=== PATIENT | male | born 1985 | race Caucasian/White ===

== ENCOUNTER 2018-01-19 10:01 | Emergency (ER) | payer BC, OTHER ==
[~2018-01-19] VITALS: Ht 182.9 cm; Wt 86.5 kg
[~2018-01-19 10:01] MED LIST: ACET-1311 PO; GLUCTAB7 PO; RXC5 PO
[2018-01-19 10:05] VITALS: TEMP 36.6; Ht 182.9 cm; Wt 86.5 kg
[2018-01-19] MEDS ORDERED: MoRPHine SULFATE 10 MG/ML CARP/VIAL IV STA (10:19)
[2018-01-19] MEDS ORDERED: KETOROLAC TROMETHAMINE 30 MG/ML VIAL IV STA (10:19)
[2018-01-19 10:38] LABS: HEMATOCRIT 42.6 % (42-52); HEMOGLOBIN 15.6 g/dL (14.0-18.0); MEAN CELL VOLUME 84.9 fL (80-100); MEAN CORPUSCULAR HEMOGLOBIN 31.1 pg (25-34); MEAN CORPUSCULAR HGB CONC 36.6 g/dl (32-36); MEAN PLATELET VOLUME 9.2 fL (7.4-10.4); PLATELET COUNT 197 K/uL (130-400); RED CELL DISTRIBUTION WIDTH CV 12.5 % (11.5-14.5); RED CELL DISTRIBUTION WIDTH SD 38.1 fL (36.4-46.3); WHITE BLOOD COUNT 4.93 K/uL (4.8-10.8)
[2018-01-19 11:04] LABS: CALCIUM 9.2 mg/dl (8.5-10.1); CREATININE 0.75 mg/dl (0.60-1.40); POTASSIUM 4.2 mmol/L (3.5-5.1)
[2018-01-19] MEDS ORDERED: HYDR-4383 PO (11:20)
[2018-01-19] MEDS ORDERED: IBUP-1050 PO (11:20)
[2018-01-19] MEDS ORDERED: MULT-506 PO (11:20)
[2018-01-19] MEDS ORDERED: GLUC1CAP35 PO (11:20)
[2018-01-19] MEDS ORDERED: OMEG10007 PO (11:20)
--- NOTE | 2018-01-19 11:31 | DIAGNOSTIC IMAGING REPORT ---
TWO VIEW CHEST CLINICAL HISTORY: Thoracic back pain. FINDINGS: PA and lateral chest radiographs are compared to study dated 11/16/2014. The cardiomediastinal silhouette is unremarkable. The lungs and pleural spaces are clear. There is no pneumothorax. The bony thorax appears intact. IMPRESSION: No active disease in the chest. Electronically signed by: Allen Johnson M.D. 01/19/2018 11:30 AM Dictated Date/Time: 01/19/2018 11:30 AM
--- NOTE | 2018-01-19 11:34 | DIAGNOSTIC IMAGING REPORT ---
THORACIC SPINE 3 VIEWS CLINICAL HISTORY: Thoracic back pain. FINDINGS: AP, lateral, and swimmer's views of the thoracic spine are obtained. No prior studies are available for comparison at the time of dictation. The skeletal structures are well mineralized. There is no radiographic evidence of fracture or malalignment. Vertebral body height and alignment are maintained throughout the thoracic spine. The disc spaces are preserved. The transverse processes and pedicles are intact as seen on the frontal view. The imaged lung parenchyma appears clear. IMPRESSION: Unremarkable radiographic assessment of the thoracic spine. Electronically signed by: Allen Johnson M.D. 01/19/2018 11:33 AM Dictated Date/Time: 01/19/2018 11:32 AM
[2018-01-19 11:56] VITALS: BP 130/86; PULSE 75; O2SAT 95
--- NOTE | 2018-01-19 14:43 | EMERGENCY ROOM VISIT NOTE ---
History Report prepared by Mitesh: Otis Faust Under the Supervision of: Dr. Allen Arteaga M.D. First contact with patient: 10:11 Chief Complaint: SHORTNESS OF BREATH Stated Complaint: SOB,MIDDLE BACK PAIN History of Present Illness The patient is a 32 year old male who presents to the Emergency Room with complaints of gradually worsening upper to middle back pressure beginning yesterday. He currently rates his discomfort an 8/10 in severity. The patient states he was putting in a new microwave when his symptoms gradually began. He reports he has a history of a fused lower back, but this is not the location of his symptoms. The patient notes it is primarily in his upper back between his shoulders. He states movement takes his symptoms worsen and takes his breath away. The patient reports turning to the right hurts more than turning to his left. He notes breathing does not affect the severity of his symptoms. The patient states he currently receives pain management for a history of multiple surgeries. He denies a history of blood clots and recent long travel. Source of History: patient Onset: yesterday Position: back (upper) Symptom Intensity: 8/10 Quality: pressure Timing: worsening (gradually) Modifying Factors (Worsening): movement (takes breath away) Note: Denies: pain with breathing, hx of blood clots, recent long travel Review of Systems See HPI for pertinent positives & negatives. A total of 10 systems reviewed and were otherwise negative. Past Medical & Surgical Medical Problems: (1) Heart disease (2) HTN (hypertension) (3) Stomach problems (4) Ulcer Surgical Problems: (1) H/O spinal fusion Family History Cancer FH: heart disease Social History Smoking Status: Never Smoker Alcohol Use: none Drug Use: none Marital Status: single Housing Status: lives with family Occupation Status: employed Current/Historical Medications Scheduled Fish Oil ([place]-3), 1 CAP PO DAILY Runurlvacoh-Ozwclmyxxyf-Seg C- (Glucosamine Chondroitin), 1 CAP PO DAILY Multivitamin (Multivitamin), 1 TAB PO DAILY Scheduled PRN Hydrocodone/Acetaminophen ([place] 10/325 Tab), 1 TAB PO QID PRN for Pain Ibuprofen (Advil), 400 MG PO TID PRN for Pain Allergies Coded Allergies: Magnesium Sulfate (Verified Allergy, Unknown, HIVES, 01/19/18) NO KNOWN DRUG ALLERGIES (Verified Allergy, Unknown, , 12/06/14) Physical Exam Vital Signs Date Time Temp Pulse Resp B/P (MAP) Pulse Ox O2 Delivery O2 Flow Rate FiO2 01/19/18 11:56 75 16 130/86 95 Room Air 01/19/18 10:52 91 01/19/18 10:41 98 16 142/89 98 Room Air 01/19/18 10:30 90 18 176/117 98 Room Air 01/19/18 10:28 99 Room Air 01/19/18 10:05 36.6 102 20 168/96 100 Room Air Physical Exam GENERAL: Patient is in no acute distress. HEENT: No acute trauma, normocephalic atraumatic, mucous membranes moist, no nasal congestion, no scleral icterus. NECK: No stridor, no adenopathy, no meningismus, trachea is midline. LUNGS: Clear to auscultation bilaterally, no wheeze, no rhonchi, breath sounds equal. HEART: Without murmurs gallops or rubs, regular rate and rhythm. ABDOMEN: Soft, nontender, bowel sounds positive, no hernias, no peritonitis. BACK: Tender to the lower thoracic spine, mostly off to the right of spinous process. No bony step-off. No rash. Pain worsens with movement. EXTREMITIES: No cyanosis or edema, full range of motion of all the joints without pain or difficulty, no signs for acute trauma. NEUROLOGIC: Oriented x 3, no acute motor or sensory deficits, no focal weakness. SKIN: No rash, no jaundice, no diaphoresis. Medical Decision & Procedures ER Provider Diagnostic Interpretation: X-ray results as stated below per interpretation by me and the radiologist: THORACIC SPINE 3 VIEWS CLINICAL HISTORY: Thoracic back pain. FINDINGS: AP, lateral, and swimmer's views of the thoracic spine are obtained. No prior studies are available for comparison at the time of dictation. The skeletal structures are well mineralized. There is no radiographic evidence of fracture or malalignment. Vertebral body height and alignment are maintained throughout the thoracic spine. The disc spaces are preserved. The transverse processes and pedicles are intact as seen on the frontal view. The imaged lung parenchyma appears clear. IMPRESSION: Unremarkable radiographic assessment of the thoracic spine. Electronically signed by: Allen Johnson M.D. 01/19/2018 11:33 AM Dictated Date/Time: 01/19/2018 11:32 AM TWO VIEW CHEST CLINICAL HISTORY: Thoracic back pain. FINDINGS: PA and lateral chest radiographs are compared to study dated 11/16/2014. The cardiomediastinal silhouette is unremarkable. The lungs and pleural spaces are clear. There is no pneumothorax. The bony thorax appears intact. IMPRESSION: No active disease in the chest. Electronically signed by: Allen Johnson M.D. 01/19/2018 11:30 AM Dictated Date/Time: 01/19/2018 11:30 AM Laboratory Results 01/19/18 10:30 01/19/18 10:30 Test 01/19/18 10:30 01/19/18 10:34 Red Blood Count 5.02 M/uL (4.7-6.1) Mean Corpuscular Volume 84.9 fL (80-100) Mean Corpuscular Hemoglobin 31.1 pg (25-34) Mean Corpuscular Hemoglobin Concent 36.6 g/dl (32-36) RDW Standard Deviation 38.1 fL (36.4-46.3) RDW Coefficient of Variation 12.5 % (11.5-14.5) Mean Platelet Volume 9.2 fL (7.4-10.4) Anion Gap 6.0 mmol/L (3-11) Est Creatinine Clear Calc Drug Dose 158.1 ml/min Estimated GFR () 142.7 Estimated GFR (Non- 123.1 BUN/Creatinine Ratio 18.7 (10-20) Calcium Level 9.2 mg/dl (8.5-10.1) Bedside D-Dimer 249 ng/mlFEU (0-450) Bedside Troponin I < 0.030 ng/ml (0-0.045) Laboratory results reviewed by me. Medications Administered Medications (Trade) Dose Ordered Sig/Bruno Route Start Time Stop Time Status Last Admin Dose Admin Ketorolac Tromethamine (Toradol Inj) 30 mg NOW STAT IV 01/19/18 10:19 01/19/18 10:22 DC 01/19/18 11:00 30 MG Morphine Sulfate (MoRPHine SULFATE INJ) 6 mg NOW STAT IV 01/19/18 10:19 01/19/18 10:22 DC 01/19/18 11:00 6 MG ECG Per My Interpretation Indication: back/shoulder pain Rate (beats per minute): 87 Rhythm: normal sinus Findings: no ectopy, other (No ST elevation. No PVCs.) ED Course 1014: The patient was evaluated in room B05. A complete history and physical exam was performed. 1019: Ordered Morphine Sulfate 6mg IV, Toradol 30mg IV 1154: Reevaluated the patient. Discussed results and discharge instructions: he verbalized understanding and agreement. The patient is ready for discharge. Medical Decision The patient is a 32 year old male who presents to the ED with complaints of upper to middle back pain. Differential diagnoses considered include musculoskeletal pain, fracture, nerve impingement, pneumothorax, pneumonia, PE, [place]. There is no leukocytosis or concerning anemia. No significant electrolyte abnormality or kidney failure. Chest film does not show pneumonia, pneumothorax or mediastinal widening. T-spine series does not show fracture or bony malalignment. EKG shows a normal sinus rhythm, no acute ischemia. Cardiac enzyme testing 1 is not consistent with acute cardiac injury. D-dimer testing is negative. With a negative d-dimer and my low suspicion for PE, I will stop the workup for this diagnosis. Patient received IV Toradol and IV morphine, he feels improved. Patient's workup is benign, his pain is reproducible with movement and palpation and very likely musculoskeletal. Patient was reassured, he is being discharged home. Medication Reconcilliation Current Medication List: was personally reviewed by me Blood Pressure Screening Patient's blood pressure: Elevated blood pressure Blood pressure disposition: Elevated BP felt to be situational Impression Primary Impression: Thoracic back pain Scribe Attestation The scribe's documentation has been prepared under my direction and personally reviewed by me in its entirety. I confirm that the note above accurately reflects all work, treatment, procedures, and medical decision making performed by me. Departure Information Dispostion Home / Self-Care Referrals No Doctor, Assigned (PCP) Forms HOME CARE DOCUMENTATION FORM, IMPORTANT VISIT INFORMATION, Work Instructions Patient Instructions My [facility] Additional Instructions continue the pain meds as before motrin otc for additional pain control rest no lifting heat to the area for 30 minutes at a time every 1-2 hours return if worsening xrays and lab testing today was ok
== END 2018-01-19 12:06 | disposition home or self-care (01) ==
LOC: C.EDB 10:03
DX: M54.6 Pain in thoracic spine (principal); I11.9 Hypertensive heart disease without heart failure; Z79.899 Other long term (current) drug therapy; Z88.8 Allergy status to other drugs, medicaments and biological substances

== ENCOUNTER 2023-02-19 11:04 | Inpatient (IN) ==
--- NOTE | 2023-02-19 11:22 | Emergency Department Note ---
ED Provider Note History of Present Illness Chief Complaint: Swelling/Edema to Extremity Stated Complaint: LEG SWELLING, PAIN, CHILLS Time Seen by Provider: 02/19/23 11:20 This is a 37-year-old male who presents to the emergency department with right leg pain swelling and redness, and chills. He cut his leg on the corner of a piece of metal in his shop 4 days ago and he states that this wound did not heal properly. Since then, he has developed worsening pain, redness, and swelling. Last night his symptoms became much more severe. He had chills and took Tylenol. Has not taken any pain or fever reducing medications today. States that the pain is very severe and he cannot walk on the leg. He does endorse a history of intermittent leg swelling over the past 1 to 2 years worse on the right than the left that seems to come and go. He wears compression stockings for this. Has never had this evaluated in the past. He denies any other significant medical problems, no history of diabetes or poor wound healing. Does not take any other medications on a daily basis. No chest pain or shortness of breath. Unsure when his last tetanus shot was updated Allergies Allergy/AdvReac Type Severity Reaction Status Date / Time magnesium sulfate Allergy Unknown HIVES Verified 09/01/19 12:56 No Known Drug Allergies Allergy Unknown Verified 12/06/14 11:36 Past Med/Surg History Medical History Epididymoorchitis HTN (hypertension) Lumbar disc herniation with radiculopathy Surgical History History of back surgery Hx of lumbar discectomy Family History Father Myocardial infarction Other Heart disease Denies family history of Prostate cancer Breast cancer Colorectal cancer Social History Smoking Status: Former smoker Tobacco Type: E-cigarettes / Vaping Second Hand Exposure: No; Do You Dip or Chew Tobacco: No; Hx Alcohol Use: No Hx Substance Use: No Preferred Language: [place] [employer] Station Manager Required: No Beliefs That Will Affect Care: None marital status: Single Current Living Situation: Spouse current occupational status: employed Feels Safe at Home: Yes caffeine: Yes Dental Care, Regularly: Yes Physical Activity Frequency: 1-2 Times per Week Seatbelt Use: never Sunscreen Use: Yes Assistive Devices: None Physical Exam Vital Signs Vital Signs - 24 hr 02/19/23 11:14 02/19/23 12:10 02/19/23 12:10 Temperature 99.9 F H 98.1 F Temperature Source Temporal Artery Scan Oral Pulse Rate 134 H Pulse Rate [Apical] 118 H Pulse Rhythm [Apical] Regular Respiratory Rate 18 22 Respiratory Effort / Characteristics Non-Labored Non-Labored Spontaneous Respiratory Depth Normal Normal Respiratory Pattern Regular Blood Pressure 146/78 H Blood Pressure [Right Arm] 148/104 H Blood Pressure Mean 100 Blood Pressure Mean [Right Arm] 118 Blood Pressure Position [Right Arm] Lying Pulse Oximetry 100 98 98 Oxygen Delivery Method Room Air Room Air Room Air Sepsis Recent Fever Within 48 Hours Yes Sepsis New/Unexplained Change in Mental Status No Sepsis Action Taken by Nursing No Action Required 02/19/23 12:59 Temperature Temperature Source Pulse Rate 120 H Pulse Rate [Apical] Pulse Rhythm [Apical] Respiratory Rate Respiratory Effort / Characteristics Respiratory Depth Respiratory Pattern Blood Pressure Blood Pressure [Right Arm] Blood Pressure Mean Blood Pressure Mean [Right Arm] Blood Pressure Position [Right Arm] Pulse Oximetry Oxygen Delivery Method Sepsis Recent Fever Within 48 Hours Sepsis New/Unexplained Change in Mental Status Sepsis Action Taken by Nursing CONSTITUTIONAL: Well developed, well nourished, moderately ill-appearing. Rigors. EYES: conjunctivae normal, extraocular muscles intact. No scleral icterus ENMT: External ears normal. Nose with normal external appearance, no congestion. NECK: Full active range of motion. LYMPHATIC: Positive for right inguinal adenopathy RESPIRATORY: Breathing unlabored and symmetric. Lungs clear to auscultation bilaterally. No wheeze, rales, or rhonchi. CARDIOVASCULAR: Tachycardic rate and regular rhythm. No murmurs, rubs, or gallops. ABDOMEN: Normal bowel sounds. Soft, nontender, no peritonitis. No masses. MUSCULOSKELETAL: Right lower extremity: There is edema and an warm erythematous rash to the lower leg extending from the toes all the way up to the proximal lower leg. This is exquisitely tender to palpation. There is an ulcerative dime sized wound with minimal purulence present on the anterior can, no underlying fluctuance. There is lymphatic streaking on bilateral aspects of the leg extending onto the thigh. A relatively small fluid filled blister is present on the medial ankle/foot. Patient able to move all toes. No other open wounds. SKIN: Oil Trough, warm, dry. NEUROLOGIC: Awake, alert, oriented. Gaze is conjugate. Face symmetric, speech normal. Moves head and all four extremities spontaneously PSYCHIATRIC: Appropriate. Normal affect Course Administered Medications Ampicillin Sodium/Sulbactam Sodium 3,000 mg/ Sodium Chloride 108 mls @ 200 mls/hr IV Q6H [facility]; Protocol Stop: 02/26/23 18:44 Last Admin: 02/19/23 20:42 Dose: 200 mls/hr Documented By: AMIE Morphine Sulfate (Morphine Sulfate 2 Mg/Ml Carp) 2 mg IV Q4H PRN PRN Reason: pain, 2nd line Stop: 03/05/23 15:44 Last Admin: 02/19/23 19:21 Dose: 2 mg Documented By: AMIE Discontinued Medications Acetaminophen (Acetaminophen 500 Mg Tab) 1,000 mg PO NOW STA Stop: 02/19/23 11:35 Last Admin: 02/19/23 11:57 Dose: 1,000 mg Documented By: VY Diphtheria/Pertussis/Tetanus Vacc (Diphtheria/Tetanus/Pertussis Vaccine (Tdap, Age 7+Yrs) 0.5ml Syr/Vl) 0.5 ml IM .ONCE ONE Stop: 02/19/23 11:57 Last Admin: 02/19/23 12:17 Dose: 0.5 ml Documented By: VY Sodium Chloride (Nss 1000ml) 2,000 mls @ 999 mls/hr IV .Q2H1M ONE Stop: 02/19/23 13:34 Last Infusion: 02/19/23 17:26 Dose: 0 mls/hr Documented By: Admin: 02/19/23 12:08 Dose: 999 mls/hr Documented By: YV Vancomycin HCl 1,750 mg/ (Sodium Chloride) 535 mls @ 200 mls/hr IV NOW ONE Stop: 02/19/23 14:24 Last Admin: 02/19/23 12:32 Dose: 200 mls/hr Documented By: VY Ceftriaxone Sodium (Rocephin) 2,000 mg in 70 mls @ 140 mls/hr IV NOW STA Stop: 02/19/23 12:13 Last Infusion: 02/19/23 12:49 Dose: 0 mls/hr Documented By: Admin: 02/19/23 12:08 Dose: 140 mls/hr Documented By: VY Parenteral Electrolytes (Plasma-Lyte A Ph 7.4) 500 mls @ 999 mls/hr IV .Q31M ONE Stop: 02/19/23 18:33 Last Admin: 02/19/23 18:51 Dose: 999 mls/hr Documented By: MARY Ioversol (Optiray 320 500ml) 94 ml IV ONCE ONE Stop: 02/19/23 14:00 Last Admin: 02/19/23 13:59 Dose: 94 ml Documented By: SELAM Morphine Sulfate (Morphine Sulfate 4 Mg/Ml 1 Ml Carp\Vial) 4 mg IV NOW STA Stop: 02/19/23 11:35 Last Admin: 02/19/23 12:08 Dose: 4 mg Documented By: VY Medical Decision Making Differential Diagnosis Cellulitis, abscess, foreign body, lymphangitis, sepsis, DVT, lymphadenopathy, among other pathology Medical Records Attestation: I reviewed the patient's medical records. (Reviewed prior ED notes, reviewed prior Tdap) Laboratory Data 02/19/23 11:55 02/19/23 11:55 Lab Results 02/19/23 02/19/23 02/19/23 Range/Units 11:55 11:55 11:55 WBC 18.73 H (4.8-10.8) K/ul RBC 5.20 (4.70-6.10) M/uL Hgb 15.6 (14.0-18.0) g/dl Hct 44.2 (42.0-52.0) % MCV 85.0 (80.0-100.0) fL MCH 30.0 (25.0-34.0) pg MCHC 35.3 (32.0-36.0) g/dL RDW Std Deviation 40.3 (36.4-46.3) fL RDW Coeff of Eusebio 13.1 (11.5-14.5) % Plt Count 206 (130-400) K/uL MPV 9.0 L (9.4-12.4) fL Immature Gran % (Auto) 0.9 % Neut % (Auto) 93.3 % Lymph % (Auto) 2.9 % Real % (Auto) 2.1 % Eos % (Auto) 0.5 % Baso % (Auto) 0.3 % Neut # (Auto) 17.46 H (1.40-6.50) K/uL Lymph # (Auto) 0.54 L (1.2-3.4) K/uL Real # (Auto) 0.40 (0.11-0.59) K/uL Eos # (Auto) 0.10 (0-0.50) K/uL Baso # (Auto) 0.06 (0-0.2) K/uL Immature Gran # (Auto) 0.17 (0.01-0.20) K/uL Sodium 128 L (136-145) mmol/L Potassium 4.2 (3.5-5.1) mmol/L Chloride 95 L (98-107) mmol/L Carbon Dioxide 26 (21-32) mmol/L Anion Gap 7 (3-11) BUN 13 (6-23) mg/dl Creatinine 0.97 (0.6-1.4) mg/dl Est Cr Clr Drug Dosing 116.7 ml/min Est GFR ( Amer) 116.7 ml/min Est GFR (Non-Af Amer) 100.7 ml/min BUN/Creatinine Ratio 13.4 (10-20) Glucose 106 H (70-99(Fasting)) mg/dl Lactate 1.8 (0.4-2.0) mmol/L Calcium 9.1 (8.6-10.3) mg/dl Total Bilirubin 1.1 H (0.2-1.0) mg/dl AST 31 (13-39) U/L ALT 30 (7-52) U/L Alkaline Phosphatase 88 (34-104) U/L Total Protein 7.8 (6.0-8.3) gm/dl Albumin 4.1 (3.4-5.0) gm/dl Globulin 3.7 (2.5-4.0) gm/dl Albumin/Globulin Ratio 1.1 (0.9-2) SARS-CoV-2, RNA, NAAT (NEGATIVE) 02/19/23 Range/Units 13:48 WBC (4.8-10.8) K/ul RBC (4.70-6.10) M/uL Hgb (14.0-18.0) g/dl Hct (42.0-52.0) % MCV (80.0-100.0) fL MCH (25.0-34.0) pg MCHC (32.0-36.0) g/dL RDW Std Deviation (36.4-46.3) fL RDW Coeff of Eusebio (11.5-14.5) % Plt Count (130-400) K/uL MPV (9.4-12.4) fL Immature Gran % (Auto) % Neut % (Auto) % Lymph % (Auto) % Real % (Auto) % Eos % (Auto) % Baso % (Auto) % Neut # (Auto) (1.40-6.50) K/uL Lymph # (Auto) (1.2-3.4) K/uL Real # (Auto) (0.11-0.59) K/uL Eos # (Auto) (0-0.50) K/uL Baso # (Auto) (0-0.2) K/uL Immature Gran # (Auto) (0.01-0.20) K/uL Sodium (136-145) mmol/L Potassium (3.5-5.1) mmol/L Chloride (98-107) mmol/L Carbon Dioxide (21-32) mmol/L Anion Gap (3-11) BUN (6-23) mg/dl Creatinine (0.6-1.4) mg/dl Est Cr Clr Drug Dosing ml/min Est GFR ( Amer) ml/min Est GFR (Non-Af Amer) ml/min BUN/Creatinine Ratio (10-20) Glucose (70-99(Fasting)) mg/dl Lactate (0.4-2.0) mmol/L Calcium (8.6-10.3) mg/dl Total Bilirubin (0.2-1.0) mg/dl AST (13-39) U/L ALT (7-52) U/L Alkaline Phosphatase (34-104) U/L Total Protein (6.0-8.3) gm/dl Albumin (3.4-5.0) gm/dl Globulin (2.5-4.0) gm/dl Albumin/Globulin Ratio (0.9-2) SARS-CoV-2, RNA, NAAT NEGATIVE (NEGATIVE) Imaging Data Radiologist's Impression: Tibia/Fibula X-Ray 02/19/23 12:02 XR tibia fibula RT 2V CLINICAL HISTORY: open wound mid ant can, cellulitis lower leg COMPARISON: Right ankle radiographs December 27, 2009. FINDINGS: No fracture within the right tibia or fibula is identified. There is no evidence for acute osteomyelitis. Right lower leg and ankle soft tissue swelling is present. No radiographic evidence for soft tissue gas. IMPRESSION: 1. No fracture or evidence for acute osteomyelitis within the right tibia or fibula. 2. Right lower leg and ankle soft tissue swelling. ACT 112: Negative or not required by law. Electronically signed by: Kiko Sanders M.D. 02/19/2023 1:[address] 02/19/23 13:14 CT SCAN OF THE RIGHT FEMUR WITH IV CONTRAST CLINICAL HISTORY: Cellulitis. Right leg swelling and erythema. COMPARISON STUDY: No priors. TECHNIQUE: Following the IV administration of 94 cc of Optiray 320, CT scan of the right femur is performed from the bony pelvis to the knee. Images are reviewed in the axial, sagittal, and coronal planes. IV contrast was administered without complication. A dose lowering technique was utilized adhering to the principles of ALARA. FINDINGS: The skeletal structures are well mineralized. There is no evidence of right femoral fracture. There is no avascular necrosis of the right femoral head. The visualized right hemipelvis appears intact. The hip and knee joints are grossly maintained. No lytic or blastic lesion is seen. The regional musculature is normal in appearance. Minimal subcutaneous soft tissue edema is seen within the anterior/medial aspect of the thigh. There is also deep soft tissue edema posterior to the knee. No organized fluid collection is identified. The femoral and popliteal vessels are patent as imaged. Prominent right inguinal and external iliac chain lymph nodes are likely reactive. The largest node is seen on image #116 and measures 2.2 x 1.7 cm. The bladder, prostate, and seminal vesicles are normal as visualized. No soft tissue gas is seen. A left popliteal cyst is partially visualized. IMPRESSION: 1. Normal CT appearance of the right femur. 2. Mild soft tissue edema is seen in the anterior/medial right thigh, there is also soft tissue edema posterior to the knee. Correlate clinically for evidence of cellulitis. 3. No organized fluid collection is seen to indicate abscess. 4. A left popliteal cyst is partially visualized. ACT 112: Negative or not required by law. Dictated: 02/19/2023 2:23 PM Transcribed: 02/19/2023 2:36 PM Nicole [id number] JOSEPH_Maicol [id number] Electronically signed by: Allen Johnson M.D. 02/19/2023 2:[address] 02/19/23 13:[address] WITH CONTRAST CLINICAL HISTORY: Suspected cellulitis w lymphangitis/inguinal adenopathy. COMPARISON STUDY: Right knee radiographs December 28, 2019 and right tibia and fibula radiographs February 19, 2023. TECHNIQUE: Axial images of the right foot were obtained following intravenous injection of 94 cc of Optiray 320 IV. Sagittal and coronal reconstructions were viewed. Automated exposure control was utilized for the study. A dose lowering technique was utilized adhering to the principles of ALARA. FINDINGS: Please note that the CTs of the right femur and right tibia and fibula will be reported separately. Tarsometatarsal joints are intact. Please note that the distalmost aspects of several toes were not included on this exam. However, no fractures are identified within visualized portions of the right foot. There is no CT evidence for acute osteomyelitis. No fluid collection is identified. No soft tissue gas is noted. Note is made of moderate subcutaneous edema of the dorsal right mid and forefoot. There is also diffuse right lower leg soft tissue swelling. Fluid along the fascia is noted. Findings will be further described on the CT of the right tibia and fibula. There are no fractures within the right tibia or fibula. There is no evidence for acute osteomyelitis. IMPRESSION: 1. No acute fracture or evidence for acute osteomyelitis within the right foot. 2. Diffuse right lower extremity soft tissue swelling, greatest within the lower leg and ankle suggestive of cellulitis. No fluid collection to suggest abscess. In addition, associated fluid along the fascia. No soft tissue gas. ACT 112: Negative or not required by law. Electronically signed by: Kiko Sanders M.D. 02/19/2023 2:[address] 02/19/23 13:14 CT tib/fib RT w con CT DOSE: 893.14 mGy.cm CLINICAL HISTORY: suspected cellulitis w lymphangitis/inguinal blair. . Right leg swelling. TECHNIQUE: Multiaxial CT was the right tibia/fibular were performed following the intravenous administration of contrast and reformatted in the sagittal and coronal planes. A dose lowering technique was utilized adhering to the principles of ALARA. COMPARISON STUDY: None. FINDINGS: No fracture or dislocation within the right tibia or fibula. No destructive changes to suggest an osteomyelitis. There is extensive subcutaneous edema and skin thickening within the right lower leg most pronounced within the right ankle. There is a 3 cm skin blister along the medial aspect of the ankle/hindfoot. No loculated fluid collections to suggest an abscess. The major vascular structures enhance normally. There is also focal soft tissue edema within the fascial planes of the posterior leg surrounding the vessels.. This is nonspecific but could be due to a ruptured popliteal cyst or infectious process. No significant knee effusion. No radio opaque foreign bodies or soft tissue gas identified. IMPRESSION: 1. Extensive subcutaneous edema and skin thickening within the right lower leg most pronounced distally. This is nonspecific but favors a cellulitis. 2. No loculated fluid collections to suggest an abscess. 3. There is associated fluid along the posterior fascial planes within the proximal right lower leg. This could also represent underlying infection or possibly a ruptured popliteal cyst. 4. No evidence for an osteomyelitis. ACT 112: Negative or not required by law. Electronically signed by: John Georges M.D. 02/19/2023 2:40 PM Venous Doppler Study 02/19/23 13:32 ULTRASOUND BILATERAL LOWER EXTREMITY VENOUS CLINICAL HISTORY: Lower extremity edema. COMPARISON STUDY: No priors. TECHNIQUE: Real-time, grayscale, and color Doppler sonography of the deep veins of the right and left lower extremity was performed from the inguinal crease to the calf. Compression and augmentation were utilized. FINDINGS: There is no sonographic evidence of deep venous thrombosis identified in the right or left lower extremity. The common femoral, superficial femoral, and popliteal veins are patent and normally compressible bilaterally. The greater saphenous vein and the profunda femoris vein at the junction with the common femoral vein are clear in both legs. The visualized calf veins are patent bilaterally. Prominent right groin nodes are likely reactive. A left popliteal c yst measures 4.0 x 1.7 x 2.8 cm. Soft tissue edema is present in the right lower extremity. IMPRESSION: 1. There is no sonographic evidence of deep venous thrombosis identified in the right or left lower extremity. 2. Left popliteal cyst. ACT 112: Negative or not required by law. Electronically signed by: Allen Johnson M.D. 02/19/2023 5:47 PM MDM Narrative This is a 37-year-old male who presents with right lower leg swelling, pain, rash and an open wound secondary to cutting his leg on the corner of a piece of metal in his shop 4 days ago. He endorses a history of baseline intermittent leg edema in bilateral legs, worse on the right than the left for the past 1 to 2 years for which he wears compression stockings. On exam he is moderately ill-appearing with rigors. His heart rate is 134. Temperature is 99.9. He is slightly hypertensive at 146/78. He is nontoxic. The rash on the leg is highly suspicious for cellulitis given the open wound which has a slight amount of purulence (culture obtained) but no fluctuance, and he has associated lymphatic streaking and right inguinal adenopathy. An IV was established and labs were obtained. 2 L IV fluids were administered. He was given Tylenol and morphine. An order was placed for continuous cardiac monitoring and at time of visualization this demonstrated sinus tachycardia between 110 and 120. I suspected the patient would need to be admitted so I discussed antibiotic options with the ED clinical pharmacist who recommended vancomycin and ceftriaxone. Tdap updated. X-ray of the tibia/fibula was obtained to rule out any foreign bodies and this shows soft tissue edema, no evidence of osteomyelitis. Labs: Leukocytosis at 18.76 consistent with infectious process. No anemia. Hyponatremia at 128. I suspect this to be secondary to lack of intake over the last few days. Also suspect a component of dehydration. Renal function is normal. Lactate is normal. Patient's temperature improved. His tachycardia remained present. Patient not a candidate for discharge home. I discussed the case with Dr. Kelley (hospitalist, [facility]) who evaluated the patient at bedside and requested a CT of the lower extremity with contrast prior to admission. This was obtained showing evidence of extensive cellulitis with no fluid collection to suggest an abscess. There was also fluid along the fascial planes. Dr. Kelley discussed with orthopedics, no indication for surgery at this time. Patient will be admitted under the hospitalist service for close monitoring and further management Impression Cellulitis of right lower extremity, Leg wound, right, Lymphangitis of lower ex tremity Discharge Plan Visit Data Chief Complaint: Swelling/Edema to Extremity Stated Complaint: LEG SWELLING, PAIN, CHILLS ED Provider: Deborah Jacobson ED Midlevel Provider: Florin Cohen Discharge Problem: Cellulitis of right lower extremity, Leg wound, right, Lymphangitis of lower extremity Patient Disposition: Admitted As Inpatient Condition: Fair Discharge Instructions Interventions: ED Discharge Assessment Last Done: 02/19/23 17:21 Leg wound, right Qualifiers: Encounter type: initial encounter Qualified Code(s): S81.801A - Unspecified open wound, right lower leg, initial encounter
[2023-02-19] MEDS ORDERED: MoRPHine SULFATE 4 MG/ML 1 ML CARP\\VIAL IV STA (11:34)
[2023-02-19] MEDS ORDERED: ACETAMINOPHEN 500 MG TAB PO STA (11:34)
[2023-02-19] MEDS ORDERED: SODIUM CHLORIDE 0.9% 1000ML 2,000 ML IV ONE (11:34)
[2023-02-19] MEDS ORDERED: VANCOMYCIN CONSULT ACTIVE PRN ×2 (11:44→18:03)
[2023-02-19] MEDS ORDERED: cefTRIAXone SODIUM 2,000 MG/70 ML BAG IV STA (11:44)
[2023-02-19] MEDS ORDERED: VANCOMYCIN HCL 1,750 MG in SODIUM CHLORIDE 0.9% 500 ML IV ONE (11:44)
[2023-02-19] MEDS ORDERED: DIPHTHERIA/TETANUS/PERTUSSIS Vaccine (Tdap, Age 7+yrs) 0.5mL SYR/VL IM ONE (11:56)
[2023-02-19 12:20] LABS: Hematocrit (blood only) 44.2 % (42.0-52.0); Hemoglobin 15.6 g/dl (14.0-18.0); Mean Corpuscular Hgb Conc 35.3 g/dL (32.0-36.0); Platelet Count 206 K/uL (130-400); RDW Coefficient of Variation 13.1 % (11.5-14.5); RDW Standard Deviation 40.3 fL (36.4-46.3); White Blood Count 18.73 K/ul (4.8-10.8)
[2023-02-19 12:36] LABS: Albumin Globulin Ratio 1.1 (0.9-2); Albumin Level 4.1 gm/dl (3.4-5.0); BUN Creatinine Ratio 13.4 (10-20); Bilirubin,Total 1.1 mg/dl (0.2-1.0); Calcium 9.1 mg/dl (8.6-10.3); Creatinine Clr Calc Pharmacy 116.7 ml/min; Est GFR (African American) 116.7 ml/min; Est GFR (Non-African American) 100.7 ml/min; Globulin 3.7 gm/dl (2.5-4.0); Potassium 4.2 mmol/L (3.5-5.1); Total Protein 7.8 gm/dl (6.0-8.3)
[2023-02-19 12:42] LABS: Basophils # (auto) 0.06 K/uL (0-0.2); Basophils % (auto) 0.3 %; Eosinophils % (auto) 0.5 %; Immature Granulocytes # (auto) 0.17 K/uL (0.01-0.20); Immature Granulocytes % (auto) 0.9 %; Lymphocytes # (auto) 0.54 K/uL (1.2-3.4); Lymphocytes % (auto) 2.9 %; Monocytes % (auto) 2.1 %; Neutrophils # (auto) 17.46 K/uL (1.40-6.50); Neutrophils % (auto) 93.3 %
--- NOTE | 2023-02-19 13:30 | XRay Report ---
XR tibia fibula RT 2V CLINICAL HISTORY: open wound mid ant can, cellulitis lower leg COMPARISON: Right ankle radiographs December 27, 2009. FINDINGS: No fracture within the right tibia or fibula is identified. There is no evidence for acute osteomyelitis. Right lower leg and ankle soft tissue swelling is present. No radiographic evidence f or soft tissue gas. IMPRESSION: 1. No fracture or evidence for acute osteomyelitis within the right tibia or fibula. 2. Right lower leg and ankle soft tissue swelling. ACT 112: Negative or not required by law. Electronically signed by: Kiko Sanders M.D. 02/19/2023 1:29 PM
--- NOTE | 2023-02-19 13:42 | History & Physical Report ---
Date of Service February 19, 2023 Assessment & Plan (1) Cellulitis of right lower extremity: Plan: Hemant is a 37-year-old male who sustained a shop injury with a cut on sheet- metal to his right lower extremity which had proceeding swelling/edema and which has rapidly worsened with swelling, overlying erythema, lymphangitis, and pain limiting weightbearing. He is febrile with a leukocytosis and has had shaking chills/rigors over the last 24 hours. Cellulitis with lymphangitis Due to rapid progression, severity of illness, and severe pain contrasted CT to evaluate for NSTI ordered prior to admission. - CT w/ con RLE: No fracture or dislocation within the right tibia or fibula. No destructive changes to suggest an osteomyelitis. There is extensive subcutaneous edema and skin thickening within the right lower leg most pronounced within the right ankle. There is a 3 cm skin blister along the medial aspect of the ankle/hindfoot. No loculated fluid collections to suggest an abscess. The major vascular structures enhance normally. There is also focal soft tissue edema within the fascial planes of the posterior leg surrounding the vessels.. This is nonspecific but could be due to a ruptured popliteal cyst or infectious process. No significant knee effusion. No radio opaque foreign bodies or soft tissue gas identified. No loculated fluid, abscess, or gas is noted. Fascial edema/fluid is noted as above. Antibiotics expanded to Vanco and Unasyn for treatment of severe cellulitis with suspected lymphangitis. Did discuss with Ortho/Dr. Alvarez, agreed with medical management at this time and clinical reevaluation. If clinically worsening, obtain MRI and consult. Pt endorses lower extremity swelling preceding his current cellulitis which patient had not had any evaluation of, Dopplers for DVT evaluation pending. Patient also reports a history of chest tightness and lower extremity swelling,? History of blood/cardiac disorder in parents. Pt is tachycardic on admit, echo pending although suspect reactive tachycardia, improving following fluids/antibiotics/Tylenol Tdap given while in ER Blood cultures pending, surface culture pending CRP pending Tachycardia - EKG pending Improving with hydration and pain control, suspect reactive Echo pending as noted Denies chest pain on reevaluation DVT prophylaxis: Lovenox Diet: Regular Disposition: Medical telemetry due to tachycardia likely reactive, downgrade if patient improving/remained stable CODE STATUS: Full code (2) HTN (hypertension): History of Present Illness Primary Care Provider: Cherri Torres MD Hemant is a 37-year-old male with a past medical history of lumbar disc herniation with radiculopathy s/p lumbar spinal fusion and hypertension who presents to the ER for worsening right leg pain, swelling, and redness after sustaining a cut from sheet-metal working in his shop 4 days prior to ER presentation. While in the ER patient is ill-appearing, heart rate 134, temperature of 99.9, and with rigors while in the ER patient has been started on Rocephin/vancomycin empiric therapy and given Tdap. Patient seen at the bedside, patient has had rigors/fever/chills worsening over the last 24 hours, and severe pain in the right lower extremity with tense swelling and the inability to bear weight due to pain. Seen at the bedside. Hemant reports that 4 days ago he had a cut to his right lower extremity while working in the shop. Cut was on sheet-metal. He reports that prior to this he has had intermittent swelling in his right greater than left lower extremity intermittently which gets worse throughout the day and has had some intermittent feelings of shortness of breath. He has never had issues with a blood clot or heart attack, reports he thinks there was an issue with blood in his father side and possibly clots and possibly involving the heart? Cardiomyopathy but he is not sure. He reports his swelling of his legs has somewhat improved with elevation, but not completely and is not always associated with just being on his feet for long periods of time. Swelling was present at the area that got caught and which is subsequently worsened and becoming more tense and swollen over the last 4 days. He has a feeling of his heart racing and being tense, denies chest pain. He feels a little short of breath and notes that he is very worried about the infection. He denies having difficulty breathing or pain with inspiration. He has not had any severe infections like this in the past. He does have a history of lumbar surgery with metal hardware for radiculopathy. He denies abdominal pain, nausea, vomiting, diarrhea. He reports his pain is improved since getting antibiotics and morphine in the ER. He denies history of tobacco/alcohol use. He denies allergies to antibiotics and denies any allergy to contrast which she has had before without difficulty noting it just makes him feel warm/flushed. full code Allergies Allergy/AdvReac Type Severity Reaction Status Date / Time magnesium sulfate Allergy Unknown HIVES Verified 09/01/19 12:56 No Known Drug Allergies Allergy Unknown Verified 12/06/14 11:36 Home Medications Medication Instructions Recorded Confirmed Type kgweocykavu-vfgqkwfbc-wmu C-Mn 1 cap PO DAILY 08/31/19 09/01/19 History capsule (Glucosamine-Chondroitin Complex capsule) omega-3 fatty acids 1,000 mg 1,000 mg PO DAILY 08/31/19 08/31/19 History capsule ibuprofen 200 mg tablet 200 mg PO QID PRN 09/01/19 09/01/19 History cyclobenzaprine 5 mg tablet 5 mg PO TID PRN muscle spasm #10 10/09/19 Rx tabs oxycodone 10 mg tablet 10 mg PO Q4H PRN pain #15 tabs 10/09/19 Rx Past Med/Surg History Medical History Epididymoorchitis HTN (hypertension) Lumbar disc herniation with radiculopathy Surgical History History of back surgery Hx of lumbar discectomy Family History Father Myocardial infarction Other Heart disease Denies family history of Prostate cancer Breast cancer Colorectal cancer Social History Smoking Status: Never smoker Tobacco Type: E-cigarettes / Vaping Hx Alcohol Use: No Hx Substance Use: No Preferred Language: Russian marital status: Single Current Living Situation: Significant Other current occupational status: employed Feels Safe at Home: Yes caffeine: Yes Dental Care, Regularly: Yes Physical Activity Frequency: 1-2 Times per Week Seatbelt Use: never Sunscreen Use: Yes Review of Systems Review of Systems: All systems reviewed & are unremarkable except as noted in HPI & below Physical Exam Physical Exam: General: A&Ox3. NAD. Cooperative. HEENT: Atraumatic, normocephalic. Vision/hearing intact Pulm: CTAB A&P. -wheezes, -rales, -rhonchi. Symmetrical chest rise. No increased work of breathing. No respiratory distress. Cardiac: Tachycardic, regular, -mrg. Radial pulses intact and symmetrical. Abdominal: Nontender, nondistended, soft. BS present. Extremities: See photos below. Sensation of soft touch is intact in feet bilaterally qualitatively diminished on the right, ankle dorsifle xion/plantarflexion is 5/5 bilaterally but significantly limited on the right due to pain. Crepitus is not present on exam. 3 cm fluid-filled bullae present at right medial foot Results & Data Results & Data Vital Signs (Past 12 Hours) Vital Signs Temp Pulse Pulse Resp BP BP Pulse Ox 02/19/23 12:59 120 H 02/19/23 12:10 98 02/19/23 12:10 36.7 C 118 H 22 148/104 H 98 02/19/23 11:14 37.7 C H 134 H 18 146/78 H 100 O2 Del Method 02/19/23 12:59 02/19/23 12:10 Room Air 02/19/23 12:10 Room Air 02/19/23 11:14 Room Air PG Care Time/CCT Total # of Minutes Spent Total Time Spent with Patient: Total time spent is greater than 50% in coordination of care (as documented) at patient's floor/unit and/or counseling patient: Coding Level of Care Code 14114 INT INP/OBS CARE 3MIN Diagnoses Cellulitis of right lower extremity L03.115 HTN (hypertension) I10
[2023-02-19] MEDS ORDERED: OPTIRAY 320 500ml IV ONE (13:59)
--- NOTE | 2023-02-19 14:27 | CT Scan Report ---
RIGHT FOOT CT WITH CONTRAST CLINICAL HISTORY: Suspected cellulitis w lymphangitis/inguinal adenopathy. COMPARISON STUDY: Right knee radiographs December 28, 2019 and right tibia and fibula radiographs January. TECHNIQUE: Axial images of the right foot were obtained following intravenous injection of 94 cc of O ptiray 320 IV. Sagittal and coronal reconstructions were viewed. Automated exposure control was utili [employer] for the study. A dose lowering technique was utilized adhering to the principles of ALARA. FINDINGS: Please note that the CTs of the right femur and right tibia and fibula will be reported sep arately. Tarsometatarsal joints are intact. Please note that the distalmost aspects of several toes w ere not included on this exam. However, no fractures are identified within visualized portions of the right foot. There is no CT evidence for acute osteomyelitis. No fluid collection is identified. No s oft tissue gas is noted. Note is made of moderate subcutaneous edema of the dorsal right mid and fore foot. There is also diffuse right lower leg soft tissue swelling. Fluid along the fascia is noted. Fi ndings will be further described on the CT of the right tibia and fibula. There are no fractures with in the right tibia or fibula. There is no evidence for acute osteomyelitis. IMPRESSION: 1. No acute fracture or evidence for acute osteomyelitis within the right foot. 2. Diffuse right lower extremity soft tissue swelling, greatest within the lower leg and ankle sugges tive of cellulitis. No fluid collection to suggest abscess. In addition, associated fluid along the f ascia. No soft tissue gas. ACT 112: Negative or not required by law. Electronically signed by: Kiko Sanders M.D. 02/19/2023 2:26 PM
--- NOTE | 2023-02-19 14:42 | CT Scan Report ---
CT tib/fib RT w con CT DOSE: 893.14 mGy.cm CLINICAL HISTORY: suspected cellulitis w lymphangitis/inguinal blair. . Right leg swelling. TECHNIQUE: Multiaxial CT was the right tibia/fibular were performed following the intravenous adminis tration of contrast and reformatted in the sagittal and coronal planes. A dose lowering technique wa s utilized adhering to the principles of ALARA. COMPARISON STUDY: None. FINDINGS: No fracture or dislocation within the right tibia or fibula. No destructive changes to sugg est an osteomyelitis. There is extensive subcutaneous edema and skin thickening within the right lowe r leg most pronounced within the right ankle. There is a 3 cm skin blister along the medial aspect of the ankle/hindfoot. No loculated fluid collections to suggest an abscess. The major vascular structu res enhance normally. There is also focal soft tissue edema within the fascial planes of the posterio r leg surrounding the vessels.. This is nonspecific but could be due to a ruptured popliteal cyst or infectious process. No significant knee effusion. No radio opaque foreign bodies or soft tissue gas i dentified. IMPRESSION: 1. Extensive subcutaneous edema and skin thickening within the right lower leg most pronounced distal ly. This is nonspecific but favors a cellulitis. 2. No loculated fluid collections to suggest an abscess. 3. There is associated fluid along the posterior fascial planes within the proximal right lower leg. This could also represent underlying infection or possibly a ruptured popliteal cyst. 4. No evidence for an osteomyelitis. ACT 112: Negative or not required by law. Electronically signed by: John Georges M.D. 02/19/2023 2:40 PM
--- NOTE | 2023-02-19 14:54 | CT Scan Report ---
CT SCAN OF THE RIGHT FEMUR WITH IV CONTRAST CLINICAL HISTORY: Cellulitis. Right leg swelling and erythema. COMPARISON STUDY: No priors. TECHNIQUE: Following the IV administration of 94 cc of Optiray 320, CT scan of the right femur is per formed from the bony pelvis to the knee. Images are reviewed in the axial, sagittal, and coronal plan es. IV contrast was administered without complication. A dose lowering technique was utilized adherin g to the principles of ALARA. FINDINGS: The skeletal structures are well mineralized. There is no evidence of right femoral fractur e. There is no avascular necrosis of the right femoral head. The visualized right hemipelvis appears intact. The hip and knee joints are grossly maintained. No lytic or blastic lesion is seen. The regio nal musculature is normal in appearance. Minimal subcutaneous soft tissue edema is seen within the an terior/medial aspect of the thigh. There is also deep soft tissue edema posterior to the knee. No org anized fluid collection is identified. The femoral and popliteal vessels are patent as imaged. Promin ent right inguinal and external iliac chain lymph nodes are likely reactive. The largest node is seen on image #116 and measures 2.2 x 1.7 cm. The bladder, prostate, and seminal vesicles are normal as v isualized. No soft tissue gas is seen. A left popliteal cyst is partially visualized. IMPRESSION: 1. Normal CT appearance of the right femur. 2. Mild soft tissue edema is seen in the anterior/medial right thigh, there is also soft tissue edema posterior to the knee. Correlate clinically for evidence of cellulitis. 3. No organized fluid collection is seen to indicate abscess. 4. A left popliteal cyst is partially visualized. ACT 112: Negative or not required by law. Dictated: 02/19/2023 2:23 PM Transcribed: 02/19/2023 2:36 PM Nicole [id number] JOSEPH_Maicol [id number] Electronically signed by: Allen Johnson M.D. 02/19/2023 2:52 PM
--- NOTE | 2023-02-19 16:18 | Electrocardiogram Report ---
Test Reason : Blood Pressure : / mmHG Vent. Rate : 106 BPM Atrial Rate : 106 BPM P-R Int : 128 ms QRS Dur : 088 ms QT Int : 346 ms P-R-T Axes : 077 060 066 degrees QTc Int : 459 ms Sinus tachycardia Normal ECG When compared with ECG of 19-JAN-2018 10:37, No significant change was found Confirmed by Rahul River ([id number]) on 02/19/2023 4:18:50 PM Referred By: REFERRED SELF Confirmed By:Rahul River
--- NOTE | 2023-02-19 17:49 | Ultrasound Report ---
ULTRASOUND BILATERAL LOWER EXTREMITY VENOUS CLINICAL HISTORY: Lower extremity edema. COMPARISON STUDY: No priors. TECHNIQUE: Real-time, grayscale, and color Doppler sonography of the deep veins of the right and left lower extremity was performed from the inguinal crease to the calf. Compression and augmentation wer e utilized. FINDINGS: There is no sonographic evidence of deep venous thrombosis identified in the right or left lower extremity. The common femoral, superficial femoral, and popliteal veins are patent and normally compressible bilaterally. The greater saphenous vein and the profunda femoris vein at the junction w ith the common femoral vein are clear in both legs. The visualized calf veins are patent bilaterally. Prominent right groin nodes are likely reactive. A left popliteal cyst measures 4.0 x 1.7 x 2.8 cm. Soft tissue edema is present in the right lower extremity. IMPRESSION: 1. There is no sonographic evidence of deep venous thrombosis identified in the right or left lower e xtremity. 2. Left popliteal cyst. ACT 112: Negative or not required by law. Electronically signed by: Allen Johnson M.D. 02/19/2023 5:47 PM
[2023-02-19] MEDS ORDERED: PLASMA-LYTE A 500 ML IV ONE (18:03)
--- NOTE | 2023-02-19 18:03 | XCELERA ---
[id number]
[2023-02-19] MEDS: MoRPHine SULFATE 2 MG/ML CARP IV PRN (19:21)
[2023-02-19] MEDS: AMPICILLIN/SULBACTAM SOD 3,000 MG in 0.9 % SODIUM CHLORIDE 100 ML IV SCH (20:42)
[2023-02-19] MEDS: PLASMA-LYTE A 1,000 ML IV SCH (21:33)
[2023-02-19] MEDS: VANCOMYCIN HCL 1,500 MG in SODIUM CHLORIDE 0.9% 500 ML IV SCH (21:33)
[2023-02-20] MEDS: AMPICILLIN/SULBACTAM SOD 3,000 MG in 0.9 % SODIUM CHLORIDE 100 ML IV SCH ×2 (00:52→05:57)
[2023-02-20] MEDS: MoRPHine SULFATE 2 MG/ML CARP IV PRN ×3 (01:24→14:42)
[2023-02-20] MEDS: ACETAMINOPHEN 325 MG TAB PO PRN ×2 (03:05→09:57)
[2023-02-20] MEDS: PLASMA-LYTE A 1,000 ML IV SCH (05:56)
--- NOTE | 2023-02-20 08:20 | Hospitalist Progress Note ---
Date of Service February 20, 2023 Assessment & Plan (1) Cellulitis of right lower extremity: Plan: Hemant is a 37-year-old male who sustained a shop injury with a cut on sheet- metal to his right lower extremity which had proceeding swelling/edema and which has rapidly worsened with swelling, overlying erythema, lymphangitis, and pain limiting weightbearing. He is febrile with a leukocytosis and has had shaking chills/rigors over the last 24 hours. Cellulitis with lymphangitis Due to rapid progression, severity of illness, and severe pain contrasted CT to evaluate for NSTI ordered prior to admission. CT w/ con RLE: * No fracture or dislocation within the right tibia or fibula. No destructive changes to suggest an osteomyelitis. There is extensive subcutaneous edema and skin thickening within the right lower leg most pronounced within the right ankle. There is a 3 cm skin blister along the medial aspect of the ankle/hindfoot. No loculated fluid collections to suggest an abscess. The major vascular structures enhance normally. There is also focal soft tissue edema within the fascial planes of the posterior leg surrounding the vessels.. This is nonspecific but could be due to a ruptured popliteal cyst or infectious process. No significant knee effusion. No radio opaque foreign bodies or soft tissue gas identified. Initially Abx Vanco/Unasyn for severe cellulitis w/ lymphagitis Ortho discussed on admit, agreed to admission/med maganament and MRI/consult if worsened. Doppler NEGATIVE for DVT (noting bakers cyst on the left) Tdap given in ER CRP elevation, improved on repeat MRI for RLE for further eval given streaking up his leg orthopedics consult Unasyn/Vancomycin --> changing Unasyn to Zosyn for pseudomonal coverage. WBC improving, could consider adding clinda for antitoxin affect for nec fasc but does not seem like this is the case at this time Blood cultures/surface culture pending -- monitor Elevated extremity, wound RN consulted --> Added tramadol for pain. Continue tylenol/morphine as needed DC IVF, lasix 20mg IV x 1 for swelling/reduced EF. Check BNP ECHO showed LV borderline dilation. LV systolic function mild-moderately reduced EF 40-45. IVC moderately dilated -- will check BNP Added Lovenox SQ for DVT prophylaxis Monitor labs on repeat (2) Tachycardia: Plan: EKG w/ sinus tachycardia on admit, no arrhythmia on telemetry at present but will monitor Patient also reports a history of chest tightness and lower extremity swelling,? History of blood/cardiac disorder in parents. Pt is tachycardic on admit, although suspect reactive tachycardia from illness Improving w/ hydration/pain control but increased pain today/meds as above Reporting anxiety, given ativan x 1 Check TSH given hyponatremia/LE swelling CXR to be obtained as none on admission, however lung exam stable, 97% on RA (possible underlying sleep apnea, overnight pulse ox ordered for tonight) Could consider CT chest for PE if needed but no hypotension/hypoxia at present and will monitor. Lovenox SQ added for DVT prophylaxis EKG w/ CP ordered (3) HTN (hypertension): Plan: elevated 2nd to pain, monitor also possible CHF, see below -- will need outpt f/u (4) CHF (congestive heart failure): Plan: no prior diagnosis, not on any medications possible, ECHO w/ reduced EF, increased LE swelling in setting of cellulitis but reports issues at baseline Lasix 20mg IV x 1, check BNP Hold of further diuretics for now Monitor response/consider ref to CHF clinic Check A1c/lipids w/ AM for further risk stratification as patient on no home meds (5) Hyponatremia: Plan: 128 on admit, 130 after IVF check BNP/TSH for completeness pain control monitor on repeat/consider urine studies if needed Admission and Anticipated Discharge Date Admission Date: February 19, 2023 Supervising Physician Co-Signing Physician Notes PA Supervision Note: I did not personally see or examine the patient today, but I verified all ibrahim points of ZOYA Myers's assessment and plan with the following exceptions/additions: None Subjective Eval in 252, at bedside. Pain present to RLE, +anxiety. Denies alcohol use. Discussed tramadol -- he has taken successfully in the past for pain. Discussed redness, which appears improved per as far as bright redness in color, however blistering much worse to medial ankle, 3 large fluid filled blisters and streaking up his thigh. Discussed MRI to be obtained for further eval/orthopedic consultation. Cultures remain negative but discussed monitoring and possible escalation of antibiotics if worsening/if MRI shows abnormality. Chronic swelling in his legs at baseline, venous doppler NEGATIVE on admission. Does have some shortness of breath but no chest pain. Reports he thinks this is from anxiety. Ativan ordered x 1 and will monitor response. Per , does have episodes of apnea at night -- will check overnight pulse ox and discussed if + can have sleep study outpatient. Discussed will give dose of lasix as well to help with swelling, wound RN consult. Questions/concerns addressed at this time. Physical Exam Physical Exam: General: WD male sleeping in bed initially, at bedside, NAD, anxious appearing/reporting pain to his leg HEENT: head atraumatic, mmm, trachea midline, thick neck Resp: no increased work of breathing, diminished in the bases, no w/c, on room air CV: tachycardic, regular, +S3, bilateral LE edema, pitting GI: +BS, soft/NT ; no jackson MSK/Neuro/Skin: no focal deficit, no slurred speech, follows commands RLE w/ erythema, less reddened per patient/, but extending proximally beyond markings, 3 large fluid filled bullae to right medial foot, exquisitely tender to palpation, anterior lesion w/ dried blood/scabbing, no active drainage no able to do ROM to ankle due to increased pain, sensation to touch intact Psych: A&Ox3, cooperative with exam Results & Data Results & Data Vital Signs (Past 12 Hours) Vital Signs Temp Pulse Pulse Resp BP Pulse Ox O2 Del Method 02/20/23 04:00 37.8 C H 130 H 20 115/63 97 Room Air 02/19/23 22:30 137 H 02/19/23 23:00 37.0 C 131 H 18 142/93 H 98 Room Air Laboratory Results 02/19/23 02/19/23 02/19/23 Range/Units 13:48 11:55 11:55 WBC (4.8-10.8) K/ul RBC (4.70-6.10) M/uL Hgb (14.0-18.0) g/dl Hct (42.0-52.0) % MCV (80.0-100.0) fL MCH (25.0-34.0) pg MCHC (32.0-36.0) g/dL RDW Std Deviation (36.4-46.3) fL RDW Coeff of Eusebio (11.5-14.5) % Plt Count (130-400) K/uL MPV (9.4-12.4) fL Immature Gran % (Auto) % Neut % (Auto) % Lymph % (Auto) % [place] % (Auto) % Eos % (Auto) % Baso % (Auto) % Neut # (Auto) (1.40-6.50) K/uL Lymph # (Auto) (1.2-3.4) K/uL [place] # (Auto) (0.11-0.59) K/uL Eos # (Auto) (0-0.50) K/uL Baso # (Auto) (0-0.2) K/uL Immature Gran # (Auto) (0.01-0.20) K/uL Sodium 128 L (136-145) mmol/L Potassium 4.2 (3.5-5.1) mmol/L Chloride 95 L (98-107) mmol/L Carbon Dioxide 26 (21-32) mmol/L Anion Gap 7 (3-11) BUN 13 (6-23) mg/dl Creatinine 0.97 (0.6-1.4) mg/dl Est Cr Clr Drug Dosing 116.7 ml/min Est GFR ( Amer) 116.7 ml/min Est GFR (Non-Af Amer) 100.7 ml/min BUN/Creatinine Ratio 13.4 (10-20) Glucose 106 H (70-99(Fasting)) mg/dl Lactate 1.8 (0.4-2.0) mmol/L Calcium 9.1 (8.6-10.3) mg/dl Total Bilirubin 1.1 H (0.2-1.0) mg/dl AST 31 (13-39) U/L ALT 30 (7-52) U/L Alkaline Phosphatase 88 (34-104) U/L Total Protein 7.8 (6.0-8.3) gm/dl Albumin 4.1 (3.4-5.0) gm/dl Globulin 3.7 (2.5-4.0) gm/dl Albumin/Globulin Ratio 1.1 (0.9-2) SARS-CoV-2, RNA, NAAT NEGATIVE (NEGATIVE) 02/19/23 Range/Units 11:55 WBC 18.73 H (4.8-10.8) K/ul RBC 5.20 (4.70-6.10) M/uL Hgb 15.6 (14.0-18.0) g/dl Hct 44.2 (42.0-52.0) % MCV 85.0 (80.0-100.0) fL MCH 30.0 (25.0-34.0) pg MCHC 35.3 (32.0-36.0) g/dL RDW Std Deviation 40.3 (36.4-46.3) fL RDW Coeff of Eusebio 13.1 (11.5-14.5) % Plt Count 206 (130-400) K/uL MPV 9.0 L (9.4-12.4) fL Immature Gran % (Auto) 0.9 % Neut % (Auto) 93.3 % Lymph % (Auto) 2.9 % [place] % (Auto) 2.1 % Eos % (Auto) 0.5 % Baso % (Auto) 0.3 % Neut # (Auto) 17.46 H (1.40-6.50) K/uL Lymph # (Auto) 0.54 L (1.2-3.4) K/uL [place] # (Auto) 0.40 (0.11-0.59) K/uL Eos # (Auto) 0.10 (0-0.50) K/uL Baso # (Auto) 0.06 (0-0.2) K/uL Immature Gran # (Auto) 0.17 (0.01-0.20) K/uL Sodium (136-145) mmol/L Potassium (3.5-5.1) mmol/L Chloride (98-107) mmol/L Carbon Dioxide (21-32) mmol/L Anion Gap (3-11) BUN (6-23) mg/dl Creatinine (0.6-1.4) mg/dl Est Cr Clr Drug Dosing ml/min Est GFR ( Amer) ml/min Est GFR (Non-Af Amer) ml/min BUN/Creatinine Ratio (10-20) Glucose (70-99(Fasting)) mg/dl Lactate (0.4-2.0) mmol/L Calcium (8.6-10.3) mg/dl Total Bilirubin (0.2-1.0) mg/dl AST (13-39) U/L ALT (7-52) U/L Alkaline Phosphatase (34-104) U/L Total Protein (6.0-8.3) gm/dl Albumin (3.4-5.0) gm/dl Globulin (2.5-4.0) gm/dl Albumin/Globulin Ratio (0.9-2) SARS-CoV-2, RNA, NAAT (NEGATIVE) Diagnostic Findings Tibia/Fibula X-Ray 02/19/23 12:02 XR tibia fibula RT 2V CLINICAL HISTORY: open wound mid ant can, cellulitis lower leg COMPARISON: Right ankle radiographs December 27, 2009. FINDINGS: No fracture within the right tibia or fibula is identified. There is no evidence for acute osteomyelitis. Right lower leg and ankle soft tissue swelling is present. No radiographic evidence for soft tissue gas. IMPRESSION: 1. No fracture or evidence for acute osteomyelitis within the right tibia or fibula. 2. Right lower leg and ankle soft tissue swelling. ACT 112: Negative or not required by law. Electronically signed by: Kiko Sanders M.D. 02/19/2023 1:[address] 02/19/23 13:14 CT SCAN OF THE RIGHT FEMUR WITH IV CONTRAST CLINICAL HISTORY: Cellulitis. Right leg swelling and erythema. COMPARISON STUDY: No priors. TECHNIQUE: Following the IV administration of 94 cc of Optiray 320, CT scan of the right femur is performed from the bony pelvis to the knee. Images are reviewed in the axial, sagittal, and coronal planes. IV contrast was administer ed without complication. A dose lowering technique was utilized adhering to the principles of ALARA. FINDINGS: The skeletal structures are well mineralized. There is no evidence of right femoral fracture. There is no avascular necrosis of the right femoral head. The visualized right hemipelvis appears intact. The hip and knee joints are grossly maintained. No lytic or blastic lesion is seen. The regional musculature is normal in appearance. Minimal subcutaneous soft tissue edema is seen within the anterior/medial aspect of the thigh. There is also deep soft tissue edema posterior to the knee. No organized fluid collection is identified. The femoral and popliteal vessels are patent as imaged. Prominent right inguinal and external iliac chain lymph nodes are likely reactive. The largest node is seen on image #116 and measures 2.2 x 1.7 cm. The bladder, prostate, and seminal vesicles are normal as visualized. No soft tissue gas is seen. A left popliteal cyst is partially visualized. IMPRESSION: 1. Normal CT appearance of the right femur. 2. Mild soft tissue edema is seen in the anterior/medial right thigh, there is also soft tissue edema posterior to the knee. Correlate clinically for evidence of cellulitis. 3. No organized fluid collection is seen to indicate abscess. 4. A left popliteal cyst is partially visualized. ACT 112: Negative or not required by law. Dictated: 02/19/2023 2:23 PM Transcribed: 02/19/2023 2:36 PM Nicole [id number] JOSEPH_Maicol [id number] Electronically signed by: Allen Johnson M.D. 02/19/2023 2:[address] 02/19/23 13:[address] WITH CONTRAST CLINICAL HISTORY: Suspected cellulitis w lymphangitis/inguinal adenopathy. COMPARISON STUDY: Right knee radiographs December 28, 2019 and right tibia and fibula radiographs February 19, 2023. TECHNIQUE: Axial images of the right foot were obtained following intravenous injection of 94 cc of Optiray 320 IV. Sagittal and coronal reconstructions were viewed. Automated exposure control was utilized for the study. A dose lowering technique was utilized adhering to the principles of ALARA. FINDINGS: Please note that the CTs of the right femur and right tibia and fibula will be reported separately. Tarsometatarsal joints are intact. Please note that the distalmost aspects of several toes were not included on this exam. However, no fractures are identified within visualized portions of the right foot. There is no CT evidence for acute osteomyelitis. No fluid collection is identified. No soft tissue gas is noted. Note is made of moderate subcutaneous edema of the dorsal right mid and forefoot. There is also diffuse right lower leg soft tissue swelling. Fluid along the fascia is noted. Findings will be further described on the CT of the right tibia and fibula. There are no fractures within the right tibia or fibula. There is no evidence for acute osteomyelitis. IMPRESSION: 1. No acute fracture or evidence for acute osteomyelitis within the right foot. 2. Diffuse right lower extremity soft tissue swelling, greatest within the lower leg and ankle suggestive of cellulitis. No fluid collection to suggest abscess. In addition, associated fluid along the fascia. No soft tissue gas. ACT 112: Negative or not required by law. Electronically signed by: Kiko Sanders M.D. 02/19/2023 2:[address] 02/19/23 13:14 CT tib/fib RT w con CT DOSE: 893.14 mGy.cm CLINICAL HISTORY: suspected cellulitis w lymphangitis/inguinal blair. . Right leg swelling. TECHNIQUE: Multiaxial CT was the right tibia/fibular were performed following the intravenous administration of contrast and reformatted in the sagittal and coronal planes. A dose lowering technique was utilized adhering to the principles of ALARA. COMPARISON STUDY: None. FINDINGS: No fracture or dislocation within the right tibia or fibula. No destructive changes to suggest an osteomyelitis. There is extensive subcutaneous edema and skin thickening within the right lower leg most pronounced within the right ankle. There is a 3 cm skin blister along the medial aspect of the ankle/hindfoot. No loculated fluid collections to suggest an abscess. The major vascular structures enhance normally. There is also focal soft tissue edema within the fascial planes of the posterior leg surrounding the vessels.. This is nonspecific but could be due to a ruptured popliteal cyst or infectious process. No significant knee effusion. No radio opaque foreign bodies or soft tissue gas identified. IMPRESSION: 1. Extensive subcutaneous edema and skin thickening within the right lower leg most pronounced distally. This is nonspecific but favors a cellulitis. 2. No loculated fluid collections to suggest an abscess. 3. There is associated fluid along the posterior fascial planes within the proximal right lower leg. This could also represent underlying infection or possibly a ruptured popliteal cyst. 4. No evidence for an osteomyelitis. ACT 112: Negative or not required by law. Electronically signed by: John Georges M.D. 02/19/2023 2:40 PM Venous Doppler Study 02/19/23 13:32 ULTRASOUND BILATERAL LOWER EXTREMITY VENOUS CLINICAL HISTORY: Lower extremity edema. COMPARISON STUDY: No priors. TECHNIQUE: Real-time, grayscale, and color Doppler sonography of the deep veins of the right and left lower extremity was performed from the inguinal crease to the calf. Compression and augmentation were utilized. FINDINGS: There is no sonographic evidence of deep venous thrombosis identified in the right or left lower extremity. The common femoral, superficial femoral, and popliteal veins are patent and normally compressible bilaterally. The greater saphenous vein and the profunda femoris vein at the junction with the common femoral vein are clear in both legs. The visualized calf veins are patent bilaterally. Prominent right groin nodes are likely reactive. A left popliteal cyst measures 4.0 x 1.7 x 2.8 cm. Soft tissue edema is present in the right lower extremity. IMPRESSION: 1. There is no sonographic evidence of deep venous thrombosis identified in the right or left lower extremity. 2. Left popliteal cyst. ACT 112: Negative or not required by law. Electronically signed by: Allen Johnson M.D. 02/19/2023 5:47 PM PG Care Time/CCT Total # of Minutes Spent Total Time Spent with Patient: Total time spent is greater than 50% in coordination of care (as documented) at patient's floor/unit and/or counseling patient: Coding Level of Care Code 32446 SUB INP/OBS CARE 3/50MIN Diagnoses Cellulitis of right lower extremity L03.115 Tachycardia R00.0 HTN (hypertension) I10 CHF (congestive heart failure) I50.9 Hyponatremia E87.1
[2023-02-20 09:49] LABS: Basophils # (auto) 0.03 K/uL (0-0.2); Basophils % (auto) 0.2 %; Eosinophils # (auto) 0.01 K/uL (0-0.50); Eosinophils % (auto) 0.1 %; Hematocrit (blood only) 42.3 % (42.0-52.0); Hemoglobin 14.8 g/dl (14.0-18.0); Immature Granulocytes # (auto) 0.15 K/uL (0.01-0.20); Immature Granulocytes % (auto) 1.2 %; Lymphocytes # (auto) 0.81 K/uL (1.2-3.4); Lymphocytes % (auto) 6.3 %; Mean Corpuscular Hemoglobin 29.9 pg (25.0-34.0); Mean Corpuscular Volume 85.5 fL (80.0-100.0); Mean Platelet Volume 9.3 fL (9.4-12.4); Monocytes # (auto) 0.38 K/uL (0.11-0.59); Neutrophils % (auto) 89.2 %; Platelet Count 183 K/uL (130-400); RDW Coefficient of Variation 13.4 % (11.5-14.5); Red Blood Count 4.95 M/uL (4.70-6.10); White Blood Count 12.78 K/ul (4.8-10.8)
[2023-02-20] MEDS: VANCOMYCIN HCL 1,500 MG in SODIUM CHLORIDE 0.9% 500 ML IV SCH ×2 (10:03→20:40)
[2023-02-20 10:11] LABS: Calcium 8.7 mg/dl (8.6-10.3); Potassium 3.9 mmol/L (3.5-5.1)
[2023-02-20 10:17] LABS: BUN Creatinine Ratio 11.8 (10-20); Creatinine Clr Calc Pharmacy 121.7 ml/min; Est GFR (African American) 122.8 ml/min
--- NOTE | 2023-02-20 10:31 | Pharmacy Report ---
Pharmacy PK ABX Note - Date of Service February 20, 2023 - Assessment and Plan Assessment 37 year old M receiving empiric vancomycin and Unasyn for treatment of right lower extremity cellulitis secondary to shop injury (sheet-metal). Lower extremity CT shows extensive subcutaneous edema/skin thickening, which favors cellulitis. No evidence of osteomyelitis. Leukocytosis improved overnight (18 K -> 12 K), renal function stable. Pertinent microbiologic data includes: blood and right leg cultures pending. Day # 2 of antimicrobial therapy. Plan Vancomycin * Loading dose: 1750 mg IV x 1 * Maintenance dose: 1500 mg IV every 12 hours * Regimen is predicted to achieve target AUC/TREMAINE of 400-600 mg/L.hr * Random level ordered for: 02/21/23 Unasyn * 3 g IV q6h - appropriately dosed, no change Pharmacy will continue to follow and will adjust dose/frequency as necessary. Thank you. Pharmacy has transitioned to AUC monitoring for vancomycin. AUC/TREMAINE is the preferred PK/PD target and is associated with decreased risk of nephrotoxicity compared to traditional trough targets.
[2023-02-20] MEDS ORDERED: LORazepam 2 MG/1 ML VIAL IV STA (10:58)
[2023-02-20] MEDS ORDERED: FUROSEMIDE INJ 20 MG/2 ML VIAL IV ONE ×2 (11:14→14:24)
[2023-02-20] MEDS: traMADol HCL 50 MG TABLET PO PRN ×2 (11:28→18:08)
[2023-02-20] MEDS ORDERED: PIPERACILLIN/TAZOBACTAM 4.5 GM (over 30 mins) IV ONE (11:45)
--- NOTE | 2023-02-20 13:00 | XRay Report ---
BONY ORBITS 3 VIEWS CLINICAL HISTORY: MRI clearance. FINDINGS: 3 views of the bony orbits are compared to study dated 01/05/2014. There is no radiodense/me tallic foreign body seen in the region of the bony orbits. The bony orbits are intact as imaged. The visualized paranasal sinuses and the mastoid air cells appear clear. The imaged calvarium appears int act. IMPRESSION: There is no radiodense/metallic foreign body seen in the region of the bony orbits. ACT 112: Negative or not required by law. Electronically signed by: Allen Johnson M.D. 02/20/2023 12:58 PM
--- NOTE | 2023-02-20 13:16 | XRay Report ---
SINGLE VIEW CHEST CLINICAL HISTORY: Dyspnea FINDINGS: An AP, portable, upright chest radiograph is compared to study dated 11/16/2014. The cardiom ediastinal silhouette is unremarkable. The lungs and pleural spaces are clear. No pneumothorax is see n. The bony thorax is grossly intact. IMPRESSION: No active disease in the chest. ACT 112: Negative or not required by law. Electronically signed by: Allen Johnson M.D. 02/20/2023 1:14 PM
--- NOTE | 2023-02-20 14:35 | Magnetic Resonance Report ---
MR lower leg RT wo/w con CLINICAL HISTORY: RLE cellulitis TECHNIQUE: Multisequence, multiplanar MR images of the right lower extremity were obtained without contrast COMPARISON: None available at the time of this dictation. FINDINGS: Subcutaneous edema and edema and enhancement within the muscular fascicles noted. No bony edema is se en. IMPRESSION: Findings are compatible with cellulitis and possible myositis, however no osteomyelitis or abscess is seen. ACT 112: Negative or not required by law. Electronically signed by: Jerod Hercules M.D. 02/20/2023 2:34 PM
[2023-02-20] MEDS: ENOXAPARIN INJ 40 MG/0.4 ML SYR SQ SCH (14:37)
[2023-02-20] MEDS: PIPERACILLIN/TAZOBACTAM 4.5 GM in DEXTROSE 5% 100 ML IV SCH (18:08)
[2023-02-20] MEDS ORDERED: LORazepam 2 MG/1 ML VIAL IV PRN (18:32)
[2023-02-21] MEDS: MoRPHine SULFATE 2 MG/ML CARP IV PRN ×4 (00:09→21:48)
[2023-02-21] MEDS: PIPERACILLIN/TAZOBACTAM 4.5 GM in DEXTROSE 5% 100 ML IV SCH ×3 (00:10→17:12)
[2023-02-21 06:04] LABS: Basophils # (auto) 0.02 K/uL (0-0.2); Basophils % (auto) 0.2 %; Eosinophils # (auto) 0.07 K/uL (0-0.50); Eosinophils % (auto) 0.7 %; Hematocrit (blood only) 37.4 % (42.0-52.0); Hemoglobin 13.2 g/dl (14.0-18.0); Immature Granulocytes # (auto) 0.06 K/uL (0.01-0.20); Immature Granulocytes % (auto) 0.6 %; Lymphocytes # (auto) 1.02 K/uL (1.2-3.4); Lymphocytes % (auto) 10.8 %; Mean Corpuscular Hemoglobin 29.6 pg (25.0-34.0); Mean Corpuscular Hgb Conc 35.3 g/dL (32.0-36.0); Mean Corpuscular Volume 83.9 fL (80.0-100.0); Mean Platelet Volume 9.3 fL (9.4-12.4); Monocytes % (auto) 6.3 %; Neutrophils # (auto) 7.71 K/uL (1.40-6.50); Neutrophils % (auto) 81.4 %; Platelet Count 174 K/uL (130-400); RDW Coefficient of Variation 13.2 % (11.5-14.5); RDW Standard Deviation 40.7 fL (36.4-46.3); Red Blood Count 4.46 M/uL (4.70-6.10); White Blood Count 9.48 K/ul (4.8-10.8)
[2023-02-21 06:09] LABS: BUN Creatinine Ratio 11.2 (10-20); Calcium 8.2 mg/dl (8.6-10.3); Chol HDL Ratio 3.8 (0-5); Creatinine Clr Calc Pharmacy 127.2 ml/min; Est GFR (African American) 128.4 ml/min; Est GFR (Non-African American) 110.8 ml/min; Magnesium 1.9 mg/dl (1.7-2.4); Potassium 3.8 mmol/L (3.5-5.1)
[2023-02-21 08:27] LABS: Estimated Average Glucose 114 mg/dl; Hemoglobin A1C 5.6 % (4.5-5.6)
[2023-02-21] MEDS: ENOXAPARIN INJ 40 MG/0.4 ML SYR SQ SCH (08:32)
[2023-02-21] MEDS: ACETAMINOPHEN 325 MG TAB PO PRN ×2 (08:46→22:27)
[2023-02-21] MEDS: VANCOMYCIN HCL 1,500 MG in SODIUM CHLORIDE 0.9% 500 ML IV SCH ×2 (08:47→17:13)
--- NOTE | 2023-02-21 09:06 | Hospitalist Progress Note ---
Date of Service February 21, 2023 Assessment & Plan (1) Sepsis: Plan: 37-year-old male who sustained a shop injury with a cut on sheet-metal to his right lower extremity which had proceeding swelling/edema and which has rapidly worsened with swelling, overlying erythema, lymphangitis, and pain limiting weightbearing. He is febrile with a leukocytosis and has had shaking chills/rigors over the last 24 hours.Sepsis w/ Tachycardia to 140-160s, WBC 18.7k, temp 38.1C - due to RLE cellulitis, POA CT RLE w/o fracture or dislocation, extensive subcutaneous edema/skin thickening w/i RLE most pronounced w/i R ankle. 3cm blister along medial aspect ankle/hindfoot. NOT loculated fluid collection On exam 02/20 w/ streaking beyond markings -- changed Unasyn to Zosyn, continues on Vanco. Consideration for Cipro if needed but improving on exam, WBC now wnl and will continue current abx regimen. HRs improving, last temp 37.8C AM 02/20, nothing further Blood cultures remain NGTD Vanco trough level low this morning, adjustments to be made by pharmacy MRI 02/20 w/o evidence for osteo or fluid collection. Findings are compatible with cellulitis and possible myositis. CK wnl on check Dr Blevins consulted -- seen this morning. Lanced the blisters/covered with xeroform/kurlex. Culture obtained with Dr Blevins -- sent to lab for analysis. Yellow/serosanguineous drainage Elevated extremity, wound RN on consult Pain control -- tramadol, tylenol, morphine for breakthrough. Anxiety - ativan, but decreased to 0.25mg PO as needed for now BNP elevation slightly. ECHO obtained which showed LV borderline dilation, LV systolic function mild-mod reduced at 40-45%. IVC moderately dilated Was given lasix 20mg IV x 1 on 02/20, will hold off further dosing for now Monitor exam/labs on repeat Lovenox SQ for DVT prophylaxis ordered (2) Cellulitis of right lower extremity: Plan: Abx as above Dopplers NEGATIVE for DVT Tdap given in ER CRP elevation, improved on repeat MRI w/o evidence for abscess AT THIS TIME or osteo Ortho on consult as above Consider arterial studies given poor wound healing baseline (3) Tachycardia: Plan: EKG w/ sinus tachycardia on admit, no arrhythmia on telemetry at present but will monitor Patient also reports a history of chest tightness and lower extremity swelling,? History of blood/cardiac disorder in parents. Pt tachycardic on admit, although suspect reactive tachycardia from illness and improving w/ abx and pain control TSH wnl CXR w/o acute process No hypotension/hypoxia at present but monitor for any need for CT chest for PE -- do not suspect at this time Suspect underlying HFpEF given symptoms swelling/exertional SOB. Consider cards f/u outpatient vs inpatient given reduced EF, NEW for patient. (4) HTN (hypertension): Plan: elevated 2nd to pain, monitor -- improved also possible CHF, see below -- will need outpt f/u (5) CHF (congestive heart failure): Plan: no prior diagnosis, not on any medications possible, ECHO w/ reduced EF, increased LE swelling in setting of cellulitis but reports issues at baseline Lasix 20mg IV x 1, check BNP -- slightly elevated Hold off further diuretics for now Stable on RA AHA diet Consider ref to CHF clinic/cards outpatient vs inpatient pending course (6) Hyponatremia: Plan: 128 on admit, 130 after IVF -- currently 129 but getting tramadol for pain as well TSH wnl Holding off further lasix for now, monitor on repeat consider urine studies if remains low Admission and Anticipated Discharge Date Admission Date: February 19, 2023 Supervising Physician Co-Signing Physician Notes PA Supervision Note: I did not personally see or examine the patient today, but I verified all ibrahim points of ZOYA Myers's assessment and plan with the following exceptions/additions: None Subjective eval this morning Dr Blevins at bedside, lancing blisters to his RLE. Pain and redness much better. Sleeping soundly but just got dose of ativan. Discussed decreasing this dose to prevent sedation. Able to be awoken and answer questions but falls back asleep quickly. Physical Exam Physical Exam: General: WD male laying in bed, just medicated with Ativan, sleepy but answering questions, at bedside HEENT: head atraumatic, normocephalic, pupils equal in size/reactive to light Resp: CTA, no increased work of breathing, on room air CV: regular rhythm, rates 90s to low 100s, 2+ b/l LE pitting edema GI: +BS, soft/NT MSK/Neuro: RLE w/ decreased erythema, now in markings, several large bullae/blisters to medial right ankle, Dr Blevins at bedside s/p lancing and cul ture Psych: alert, sleepy, answering questions appropriately, just medicated for Ativan Results & Data Results & Data Vital Signs (Past 12 Hours) Vital Signs Temp Pulse Pulse Resp BP BP Pulse Ox 02/21/23 07:59 36.6 C 120 H 18 115/74 95 02/21/23 04:00 36.5 C 100 H 20 115/73 96 02/21/23 00:00 36.9 C 129 H 20 116/72 97 02/20/23 23:39 128 H O2 Del Method 02/21/23 07:59 Room Air 02/21/23 04:00 Room Air 02/21/23 00:00 Room Air 02/20/23 23:39 Laboratory Results 02/21/23 02/21/23 02/21/23 Range/Units 05:30 05:30 05:30 WBC 9.48 (4.8-10.8) K/ul RBC 4.46 L (4.70-6.10) M/uL Hgb 13.2 L (14.0-18.0) g/dl Hct 37.4 L (42.0-52.0) % MCV 83.9 (80.0-100.0) fL MCH 29.6 (25.0-34.0) pg MCHC 35.3 (32.0-36.0) g/dL RDW Std Deviation 40.7 (36.4-46.3) fL RDW Coeff of Eusebio 13.2 (11.5-14.5) % Plt Count 174 (130-400) K/uL MPV 9.3 L (9.4-12.4) fL Immature Gran % (Auto) 0.6 % Neut % (Auto) 81.4 % Lymph % (Auto) 10.8 % Motley % (Auto) 6.3 % Eos % (Auto) 0.7 % Baso % (Auto) 0.2 % Neut # (Auto) 7.71 H (1.40-6.50) K/uL Lymph # (Auto) 1.02 L (1.2-3.4) K/uL Motley # (Auto) 0.60 H (0.11-0.59) K/uL Eos # (Auto) 0.07 (0-0.50) K/uL Baso # (Auto) 0.02 (0-0.2) K/uL Immature Gran # (Auto) 0.06 (0.01-0.20) K/uL Sodium 129 L (136-145) mmol/L Potassium 3.8 (3.5-5.1) mmol/L Chloride 99 (98-107) mmol/L Carbon Dioxide 22 (21-32) mmol/L Anion Gap 8 (3-11) BUN 10 (6-23) mg/dl Creatinine 0.89 (0.6-1.4) mg/dl Est Cr Clr Drug Dosing 127.2 ml/min Est GFR ( Amer) 128.4 ml/min Est GFR (Non-Af Amer) 110.8 ml/min BUN/Creatinine Ratio 11.2 (10-20) Glucose 107 H (70-99(Fasting)) mg/dl Estimat Average Glucose 114 mg/dl Hemoglobin A1c 5.6 (4.5-5.6) % Calcium 8.2 L (8.6-10.3) mg/dl Magnesium 1.9 (1.7-2.4) mg/dl Total Creatine Kinase (30-223) U/L B-Natriuretic Peptide (0-100) pg/ml Triglycerides 95 (0-150) mg/dl Cholesterol 103 (0-200) mg/dl LDL Cholesterol, Calc 57 mg/dl VLDL Cholesterol, Calc 19 (0-30) mg/dl HDL Cholesterol 27 mg/dl Cholesterol/HDL Ratio 3.8 (0-5) Random Vancomycin (10-20) mcg/ml 02/21/23 02/20/23 02/20/23 Range/Units 05:30 12:01 08:53 WBC (4.8-10.8) K/ul RBC (4.70-6.10) M/uL Hgb (14.0-18.0) g/dl Hct (42.0-52.0) % MCV (80.0-100.0) fL MCH (25.0-34.0) pg MCHC (32.0-36.0) g/dL RDW Std Deviation (36.4-46.3) fL RDW Coeff of Eusebio (11.5-14.5) % Plt Count (130-400) K/uL MPV (9.4-12.4) fL Immature Gran % (Auto) % Neut % (Auto) % Lymph % (Auto) % Motley % (Auto) % Eos % (Auto) % Baso % (Auto) % Neut # (Auto) (1.40-6.50) K/uL Lymph # (Auto) (1.2-3.4) K/uL Motley # (Auto) (0.11-0.59) K/uL Eos # (Auto) (0-0.50) K/uL Baso # (Auto) (0-0.2) K/uL Immature Gran # (Auto) (0.01-0.20) K/uL Sodium (136-145) mmol/L Potassium (3.5-5.1) mmol/L Chloride (98-107) mmol/L Carbon Dioxide (21-32) mmol/L Anion Gap (3-11) BUN (6-23) mg/dl Creatinine (0.6-1.4) mg/dl Est Cr Clr Drug Dosing ml/min Est GFR ( Amer) ml/min Est GFR (Non-Af Amer) ml/min BUN/Creatinine Ratio (10-20) Glucose (70-99(Fasting)) mg/dl Estimat Average Glucose mg/dl Hemoglobin A1c (4.5-5.6) % Calcium (8.6-10.3) mg/dl Magnesium (1.7-2.4) mg/dl Total Creatine Kinase 213 (30-223) U/L B-Natriuretic Peptide 121 H (0-100) pg/ml Triglycerides (0-150) mg/dl Cholesterol (0-200) mg/dl LDL Cholesterol, Calc mg/dl VLDL Cholesterol, Calc (0-30) mg/dl HDL Cholesterol mg/dl Cholesterol/HDL Ratio (0-5) Random Vancomycin 7.4 L (10-20) mcg/ml Diagnostic Findings Lower Extremity MRI 02/20/23 10:58 MR lower leg RT wo/w con CLINICAL HISTORY: RLE cellulitis TECHNIQUE: Multisequence, multiplanar MR images of the right lower extremity were obtained without contrast COMPARISON: None available at the time of this dictation. FINDINGS: Subcutaneous edema and edema and enhancement within the muscular fascicles noted. No bony edema is seen. IMPRESSION: Findings are compatible with cellulitis and possible myositis, however no osteomyelitis or abscess is seen. ACT 112: Negative or not required by law. Electronically signed by: Jerod Hercules M.D. 02/20/2023 2:34 PM Chest X-Ray 02/20/23 11:23 SINGLE VIEW CHEST CLINICAL HISTORY: Dyspnea FINDINGS: An AP, portable, upright chest radiograph is compared to study dated 11/16/2014. The cardiomediastinal silhouette is unremarkable. The lungs and pleural spaces are clear. No pneumothorax is seen. The bony thorax is grossly intact. IMPRESSION: No active disease in the chest. ACT 112: Negative or not required by law. Electronically signed by: Allen Johnson M.D. 02/20/2023 1:14 PM Orbit X-Ray 02/20/23 11:42 BONY ORBITS 3 VIEWS CLINICAL HISTORY: MRI clearance. FINDINGS: 3 views of the bony orbits are compared to study dated 01/05/2014. There is no radiodense/metallic foreign body seen in the region of the bony orbits. The bony orbits are intact as imaged. The visualized paranasal sinuses and the mastoid air cells appear clear. The imaged calvarium appears intact. IMPRESSION: There is no radiodense/metallic foreign body seen in the region of the bony orbits. ACT 112: Negative or not required by law. Electronically signed by: Allen Johnson M.D. 02/20/2023 12:58 PM PG Care Time/CCT Total # of Minutes Spent Total Time Spent with Patient: Total time spent is greater than 50% in coordination of care (as documented) at patient's floor/unit and/or counseling patient: Coding Level of Care Code 19541 SUB INP/OBS CARE 3/50MIN Diagnoses Sepsis A41.9 Cellulitis of right lower extremity L03.115 Tachycardia R00.0 HTN (hypertension) I10 CHF (congestive heart failure) I50.9 Hyponatremia E87.1
[2023-02-21] MEDS ORDERED: LORazepam 2 MG/1 ML VIAL IV PRN (12:10)
--- NOTE | 2023-02-21 13:33 | Pharmacy Report ---
Pharmacy PK ABX Note - Date of Service February 21, 2023 - Assessment and Plan Assessment 02/21/23: * Cultures negative thus far. Leukocytosis markedly improved (WBC: 18.7 -> 9.5 K) * MRI findings consistent with cellulitis and possible myositis 02/20/23: * 37 year old M receiving empiric vancomycin and Unasyn for treatment of right lower extremity cellulitis secondary to shop injury (sheet-metal). Lower extremity CT shows extensive subcutaneous edema/skin thickening, which favors cellulitis. No evidence of osteomyelitis. Leukocytosis improved overnight (18 K -> 12 K), renal function stable. Pertinent microbiologic data includes: blood and right leg cultures pending. Day # 3 of antimicrobial therapy. Plan Vancomycin * Current regimen: 1500 mg IV every 12 hours * Trough level obtained 02/21/23 resulted as 7.4 mcg/mL. This is predicted to have subtherapeutic AUC/TREMAINE * Change to 1500 mg IV every 8 hours * Predicted AUC at steady state: 536 mg/L.hr * Will repeat level in the next 48-72 hours if therapy is continued and/or change in patient clinical status Zosyn * 4.5 g IV q8h - dosed appropriately, no change Pharmacy will continue to follow and will adjust dose/frequency as necessary. Thank you. Pharmacy has transitioned to AUC monitoring for vancomycin. AUC/TREMAINE is the preferred PK/PD target and is associated with decreased risk of nephrotoxicity compared to traditional trough targets.
[2023-02-21] MEDS: LORazepam 0.5 MG TAB PO PRN (20:45)
[2023-02-21] MEDS: traMADol HCL 50 MG TABLET PO PRN (22:26)
[2023-02-21] MEDS ORDERED: HYDROmorphone INJ 1 MG/ML SYRINGE IV STA (23:11)
[2023-02-22] MEDS: PIPERACILLIN/TAZOBACTAM 4.5 GM in DEXTROSE 5% 100 ML IV SCH ×3 (02:04→17:26)
[2023-02-22] MEDS: VANCOMYCIN HCL 1,500 MG in SODIUM CHLORIDE 0.9% 500 ML IV SCH ×3 (02:05→17:26)
[2023-02-22] MEDS: MoRPHine SULFATE 2 MG/ML CARP IV PRN ×2 (02:10→09:01)
[2023-02-22] MEDS: ACETAMINOPHEN 325 MG TAB PO PRN ×2 (05:27→19:46)
[2023-02-22] MEDS: traMADol HCL 50 MG TABLET PO PRN (05:27)
[2023-02-22] MEDS: LORazepam 0.5 MG TAB PO PRN ×2 (05:33→22:25)
[2023-02-22 06:30] LABS: Basophils # (auto) 0.03 K/uL (0-0.2); Basophils % (auto) 0.4 %; Eosinophils # (auto) 0.21 K/uL (0-0.50); Eosinophils % (auto) 2.5 %; Hematocrit (blood only) 38.1 % (42.0-52.0); Hemoglobin 13.2 g/dl (14.0-18.0); Immature Granulocytes % (auto) 1.2 %; Lymphocytes # (auto) 1.23 K/uL (1.2-3.4); Lymphocytes % (auto) 14.8 %; Mean Corpuscular Hemoglobin 29.9 pg (25.0-34.0); Mean Corpuscular Hgb Conc 34.6 g/dL (32.0-36.0); Mean Corpuscular Volume 86.4 fL (80.0-100.0); Mean Platelet Volume 9.2 fL (9.4-12.4); Monocytes # (auto) 0.87 K/uL (0.11-0.59); Monocytes % (auto) 10.4 %; Neutrophils # (auto) 5.89 K/uL (1.40-6.50); Neutrophils % (auto) 70.7 %; Platelet Count 197 K/uL (130-400); RDW Coefficient of Variation 13.5 % (11.5-14.5); RDW Standard Deviation 42.6 fL (36.4-46.3); Red Blood Count 4.41 M/uL (4.70-6.10); White Blood Count 8.33 K/ul (4.8-10.8)
[2023-02-22 06:51] LABS: Albumin Globulin Ratio 0.8 (0.9-2); Albumin Level 3.1 gm/dl (3.4-5.0); BUN Creatinine Ratio 15.5 (10-20); Bilirubin,Total 0.6 mg/dl (0.2-1.0); Calcium 8.7 mg/dl (8.6-10.3); Creatinine Clr Calc Pharmacy 159.4 ml/min; Est GFR (African American) 140.9 ml/min; Est GFR (Non-African American) 121.6 ml/min; Magnesium 2.2 mg/dl (1.7-2.4); Potassium 3.8 mmol/L (3.5-5.1); Total Protein 7.1 gm/dl (6.0-8.3)
--- NOTE | 2023-02-22 07:48 | Hospitalist Progress Note ---
Date of Service February 22, 2023 Assessment & Plan (1) Sepsis: Plan: 37-year-old male who sustained a shop injury with a cut on sheet-metal to his right lower extremity which had proceeding swelling/edema and which has rapidly worsened with swelling, overlying erythema, lymphangitis, and pain limiting weightbearing. He is febrile with a leukocytosis and has had shaking chills/rigors over the last 24 hours.Sepsis w/ Tachycardia to 140-160s, WBC 18.7k, temp 38.1C - due to RLE cellulitis, POA CT RLE w/o fracture or dislocation, extensive subcutaneous edema/skin thickening w/i RLE most pronounced w/i R ankle. 3cm blister along medial aspect ankle/hindfoot. NOT loculated fluid collection MRI w/o osteo or fluid collection. Findings c/w cellulitis, possible myositis. CK wnl on check On exam 02/20 w/ streaking beyond markings -- changed Unasyn to Zosyn, continues on Vanco. Consideration for Cipro if needed but improving on exam Vanco trough level low 02/21, increased to q8h dosing by pharmacy. Remains on Zosyn WBC wnl, Last temp 37.8 AM 02/20, nothing further Blood cultures remain NGTD Ortho consulted -- addressed blistered appearance at bedside 02/21, deroofing of blisters. Culture obtained as well - monitor Continue to elevate extremity, wound RN consulted as well Pain control -- Tylenol, tramadol, morphine (did decrease dosing for increased somnolence 02/21, also decreased ativan to 0.25mg q8h prn) --> changed to 0.5mg dilaudid q6h as needed/oxycodone. decreased ativan. Appears to be working well. passing gas, no abdominal pain -- added bowel regimen while on pain medication Lovenox SQ for DVT prophylaxis ordered BNP elevation slightly. ECHO obtained which showed LV borderline dilation, LV systolic function mild-mod reduced at 40-45%. IVC moderately dilated -- Was given lasix 20mg IV x 1 on 02/20, will hold off further dosing for now -- He reports having significant elevations in his HR at home. Sinus tachycaria on monitor, rates improved w/ treating infection but suspect long standing elevated HRs leading to tachycardia. ?consideration for metoprolol but will await consult w/ cardioology (2) Cellulitis of right lower extremity: Plan: Abx as above Dopplers NEGATIVE for DVT Tdap given in ER CRP elevation, improved on repeat MRI w/o evidence for abscess AT THIS TIME or osteo Ortho on consult as above Consider arterial studies given poor wound healing baseline will need to have ABIs once cellulitis imrpoved but not able to at current moment due to pain (3) Tachycardia: Plan: EKG w/ sinus tachycardia on admit, no arrhythmia on telemetry at present but will monitor Patient also reports a history of chest tightness and lower extremity swelling,? History of blood/cardiac disorder in parents. Pt tachycardic on admit, although suspect reactive tachycardia from illness and improving w/ abx and pain control TSH wnl CXR w/o acute process No hypotension/hypoxia at present but monitor for any need for CT chest for PE -- do not suspect at this time Suspect underlying HFpEF given symptoms swelling/exertional SOB however denying to cardiology. Could also be from sepsis/infection (however he reports tachycardia preceeding any infections as well) Cards consulted as above -- appreciate recs/assistance (4) HTN (hypertension): Plan: elevated 2nd to pain, monitor -- improved also possible CHF, see below -- will need outpt f/u (5) CHF (congestive heart failure): Plan: no prior diagnosis, not on any medications possible vs from tachycardia ECHO w/ reduced EF, increased LE swelling in setting of cellulitis but reports issues at baseline Lasix 20mg IV x 1, BNP slightly elevated. Holding off further diuretics for now Stable on RA/no hypotension Continue AHA diet Cards consulted as above (6) Hyponatremia: Plan: 128 on admit, 130 after IVF -- currently 134 (was getting tramadol for pain) TSH wnl urine osm 287 urine studies w urine osm 418, elevated. Urine sodium 98. ?SIADH/pain related? Did improve from 129--> 134 on repeat labs and will monitor will check ua to eval protein, cortisol level in AM Monitor BMP on repeat Admission and Anticipated Discharge Date Admission Date: February 19, 2023 Supervising Physician Co-Signing Physician Notes PA Supervision Note: I did not personally see or examine the patient today, but I verified all ibrahim points of ZOYA Myers's assessment and plan with the following exceptions/additions: None Subjective Evaluated this morning. Doing much better. Swelling decreased, wound RN seeing at present -- two layers xeroform. Dilaudid better for pain control, will order at lower dose. Discussed cardiology consult -- he notes his heart rates have always been elevated and he is wondering if that is a problem. No further fevers. Blood cultures remain negative. Discussed continuing abx at present. Erythema in markings, less tender to palpation. Passing gas, no BM at present. Questions/concerns addressed at this time. Physical Exam Physical Exam: General: WD male sitting up in bed, more awake/alert, reporting feeling improved, NAD HEENT: head atraumatic, normocephalic, pupils equal in size/reactive to light Resp: CTA, no increased work of breathing, on room air 99% CV: regular rhythm, rates 80-90s, b/l LE edema, RLE>LLE 2nd to cellulitis, less edema today compared to yesterday, cap refill wnl, warm to touch GI: +BS, soft/NT MSK/Neuro: RLE w/ decreased erythema, within markings, streaking to thigh improved, less tender lower extremity less tender to palpation, erythema/edema decreased, elevated on pillow, sensation intact multiple prior deroofed blisters to medial ankle, prior broken blister to lateral/posterior ankle newer blisters forming to posterior heal/medially decreased tenderness throughout Psych: AOx3, cooperative with exam Results & Data Results & Data Vital Signs (Past 12 Hours) Vital Signs Temp Pulse Pulse Resp BP BP Pulse Ox 02/22/23 07:33 36.5 C 80 16 118/68 99 02/22/23 04:14 36.6 C 72 20 95/63 L 96 02/21/23 23:27 98 02/22/23 00:21 36.8 C 114 H 20 137/82 94 02/21/23 23:13 112 H 02/21/23 20:04 37.7 C H 120 H 20 125/76 94 O2 Del Method 02/22/23 07:33 Room Air 02/22/23 04:14 Room Air 02/21/23 23:27 Room Air 02/22/23 00:21 Room Air 02/21/23 23:13 02/21/23 20:04 Room Air Laboratory Results 02/22/23 02/22/23 02/22/23 Range/Units 05:46 05:46 05:46 WBC 8.33 (4.8-10.8) K/ul RBC 4.41 L (4.70-6.10) M/uL Hgb 13.2 L (14.0-18.0) g/dl Hct 38.1 L (42.0-52.0) % MCV 86.4 (80.0-100.0) fL MCH 29.9 (25.0-34.0) pg MCHC 34.6 (32.0-36.0) g/dL RDW Std Deviation 42.6 (36.4-46.3) fL RDW Coeff of Eusebio 13.5 (11.5-14.5) % Plt Count 197 (130-400) K/uL MPV 9.2 L (9.4-12.4) fL Immature Gran % (Auto) 1.2 % Neut % (Auto) 70.7 % Lymph % (Auto) 14.8 % Dubois % (Auto) 10.4 % Eos % (Auto) 2.5 % Baso % (Auto) 0.4 % Neut # (Auto) 5.89 (1.40-6.50) K/uL Lymph # (Auto) 1.23 (1.2-3.4) K/uL Dubois # (Auto) 0.87 H (0.11-0.59) K/uL Eos # (Auto) 0.21 (0-0.50) K/uL Baso # (Auto) 0.03 (0-0.2) K/uL Immature Gran # (Auto) 0.10 (0.01-0.20) K/uL Sodium 134 L (136-145) mmol/L Potassium 3.8 (3.5-5.1) mmol/L Chloride 101 (98-107) mmol/L Carbon Dioxide 27 (21-32) mmol/L Anion Gap 6 (3-11) BUN 11 (6-23) mg/dl Creatinine 0.71 (0.6-1.4) mg/dl Est Cr Clr Drug Dosing 159.4 ml/min Est GFR ( Amer) 140.9 ml/min Est GFR (Non-Af Amer) 121.6 ml/min BUN/Creatinine Ratio 15.5 (10-20) Glucose 114 H (70-99(Fasting)) mg/dl Osmolality 287 (280-300) mOsm/kg Calcium 8.7 (8.6-10.3) mg/dl Magnesium 2.2 (1.7-2.4) mg/dl Total Bilirubin 0.6 (0.2-1.0) mg/dl AST 19 (13-39) U/L ALT 22 (7-52) U/L Alkaline Phosphatase 106 H (34-104) U/L Total Protein 7.1 (6.0-8.3) gm/dl Albumin 3.1 L (3.4-5.0) gm/dl Globulin 4.0 (2.5-4.0) gm/dl Albumin/Globulin Ratio 0.8 L (0.9-2) Urine Osmolality (500-800) mOsm/kg Ur Random Sodium mmol/L 02/21/23 02/21/23 Range/Units 21:00 21:00 WBC (4.8-10.8) K/ul RBC (4.70-6.10) M/uL Hgb (14.0-18.0) g/dl Hct (42.0-52.0) % MCV (80.0-100.0) fL MCH (25.0-34.0) pg MCHC (32.0-36.0) g/dL RDW Std Deviation (36.4-46.3) fL RDW Coeff of Eusebio (11.5-14.5) % Plt Count (130-400) K/uL MPV (9.4-12.4) fL Immature Gran % (Auto) % Neut % (Auto) % Lymph % (Auto) % Dubois % (Auto) % Eos % (Auto) % Baso % (Auto) % Neut # (Auto) (1.40-6.50) K/uL Lymph # (Auto) (1.2-3.4) K/uL Dubois # (Auto) (0.11-0.59) K/uL Eos # (Auto) (0-0.50) K/uL Baso # (Auto) (0-0.2) K/uL Immature Gran # (Auto) (0.01-0.20) K/uL Sodium (136-145) mmol/L Potassium (3.5-5.1) mmol/L Chloride (98-107) mmol/L Carbon Dioxide (21-32) mmol/L Anion Gap (3-11) BUN (6-23) mg/dl Creatinine (0.6-1.4) mg/dl Est Cr Clr Drug Dosing ml/min Est GFR ( Amer) ml/min Est GFR (Non-Af Amer) ml/min BUN/Creatinine Ratio (10-20) Glucose (70-99(Fasting)) mg/dl Osmolality (280-300) mOsm/kg Calcium (8.6-10.3) mg/dl Magnesium (1.7-2.4) mg/dl Total Bilirubin (0.2-1.0) mg/dl AST (13-39) U/L ALT (7-52) U/L Alkaline Phosphatase (34-104) U/L Total Protein (6.0-8.3) gm/dl Albumin (3.4-5.0) gm/dl Globulin (2.5-4.0) gm/dl Albumin/Globulin Ratio (0.9-2) Urine Osmolality 418 L (500-800) mOsm/kg Ur Random Sodium 98 mmol/L PG Care Time/CCT Total # of Minutes Spent Total Time Spent with Patient: Total time spent is greater than 50% in coordination of care (as documented) at patient's floor/unit and/or counseling patient: Coding Level of Care Code 73135 SUB INP/OBS CARE 3/50MIN Diagnoses Sepsis A41.9 Cellulitis of right lower extremity L03.115 Tachycardia R00.0 HTN (hypertension) I10 CHF (congestive heart failure) I50.9 Hyponatremia E87.1
[2023-02-22] MEDS: ENOXAPARIN INJ 40 MG/0.4 ML SYR SQ SCH (08:13)
[2023-02-22] MEDS: DOCUSATE SODIUM/SENNA 50/8.6MG TAB PO SCH (10:09)
[2023-02-22] MEDS: oxyCODONE HCL IR 5 MG TAB (IMMEDIATE RELEASE) PO PRN ×3 (10:09→22:27)
[2023-02-22] MEDS: POLYETHYLENE (MIRALAX) 17 GM PACK PO SCH (10:09)
[2023-02-22] MEDS: HYDROmorphone INJ 0.5 MG/0.5 ML SYR IV PRN ×2 (12:11→19:46)
--- NOTE | 2023-02-22 13:28 | Cardiology Consultation ---
Date of Consultation February 22, 2023 Assessment & Plan (1) Cardiomyopathy: Patient with top normal LV size and mildly reduced systolic function (EF 40- 45%), but to my history and exam without evidence of congestive heart failure or even any symptoms attributable to reduced LV function. Given his high level of physical activity, mildly reduced LV systolic function might even be a physiologic adaptation, but this seems less likely given his long history of tachycardia. In the absence of symptoms and given the mild nature of his potential cardiomyopathy, would defer evaluation until he has fully recovered from his right lower extremity cellulitis. Will schedule him for a stress echocardiogram in 1 month, if he has normal left ventricular systolic reserve it would remain unclear that he actually has a cardiomyopathy. However, it he does have limited systolic reserve, then further evaluation as to etiology and preventative treatment with SARAH inhibitor or ARB and low-level beta-dina may be warranted. If he were to have any substantial symptoms sooner, could perform a dobutamine stress echocardiogram, but this would be less informative regarding the impact of his reduced LV systolic function (if any) on his hemodynamics during high levels of exertion. (2) Sinus tachycardia: Etiology uncertain, he did have a recent TSH which was normal. The degree of LV reduction in systolic function would not seem to warrant a chronic tachycardia, there is a bit of a "chicken and egg" possibility that his chronic tachycardia is causing mild LV systolic dysfunction. Currently, mild tachycardia is likely physiologic, would not specifically treat in the absence of symptoms or further evidence that his sinus tachycardia is inappropriate. Hemodynamic response to exercise at the time of his stress test will be helpful in determining the degree to which his tachycardia is approp riate or inappropriate. (3) Cellulitis of right lower extremity: His chronic right lower extremity edema of uncertain etiology no doubt contributes to recurrent cellulitis. After his infection is fully treated and he has recovered and returned to his baseline level of edema, recommended obtaining venous Doppler studies to see if he has reflux and thus might be a candidate for venous ablation therapy to reduce his edema. Meanwhile, he plans to use a protective boot to minimize the chance of trauma to his edematous leg. Plan No further inpatient testing, will arrange for stress echocardiogram and noninvasive studies of his lower extremity in about 1 month's time. Cardiology follow-up after these tests are obtained. History of Present Illness Reason for Consultation: cardiomyopathy, tachycardia, exertional SOB Requesting Physician: Sheryl Lee MD Attending Physician: Sheryl Lee MD History of Present Illness 37-year-old man with no cardiac history admitted with a right lower extremity cellulitis after a shop injury, due to persistent sinus tachycardia he underwent an echocardiogram which showed mild reduction in left ventricular systolic function (EF 40-45% with moderate global hypokinesis), prompting further cardiology evaluation. Both the patient and his (she joined my interview via phone) noted that he is very physically active and has no limitations whatsoever. He denied any dyspnea exertion, chest discomfort, subjective palpitations, presyncope, or sy ncope. He works in construction and performs fairly heavy labor. He does have a history of chronic right lower extremity edema over the past several years, this can wax and wane depending upon position, but he does routinely wear knee-high compression stockings to address the edema. He apparently has had prior episodes of cellulitis in the right leg. There is a history of a remote complex ankle injury in that leg. No history of left leg edema. Telemetry shows sinus rhythm with periods of sinus tachycardia, heart rate ranging from 90-120 bpm. No paroxysmal tachycardias or other dysrhythmias. Patient does note long history of mildly elevated heart rate, review of the record shows a normal heart rate at times but more often some degree of tachycardia. This includes a 2019 wellness visit where his pulse rate was initially 150 bpm, later it was 115 bpm. He apparently had no acute complaints at that time, but did have chronic back pain. At the time of my evaluation, he noted only persistent right leg swelling and discomfort but had no other somatic complaints. Allergies Allergy/AdvReac Type Severity Reaction Status Date / Time magnesium sulfate Allergy Unknown HIVES Verified 09/01/19 12:56 No Known Drug Allergies Allergy Unknown Verified 12/06/14 11:36 Home Medications Medication Instructions Recorded Confirmed Type No Known Home Medications 02/20/23 02/20/23 History Patient History Medical History Epididymoorchitis HTN (hypertension) Lumbar disc herniation with radiculopathy Surgical History History of back surgery Hx of lumbar discectomy Family History Father Myocardial infarction Other Heart disease Denies family history of Prostate cancer Breast cancer Colorectal cancer Social History Smoking Status: Former smoker Tobacco Type: E-cigarettes / Vaping Second Hand Exposure: No; Do You Dip or Chew Tobacco: No; Hx Alcohol Use: No Hx Substance Use: No Preferred Language: Belarusian Communication Ability: Impaired Document Management Technician Required: No Beliefs That Will Affect Care: None marital status: Single Current Living Situation: Spouse current occupational status: employed Feels Safe at Home: Yes caffeine: Yes Dental Care, Regularly: Yes Physical Activity Frequency: 1-2 Times per Week Seatbelt Use: never Sunscreen Use: Yes Assistive Devices: Crutches Physical Exam Physical Exam: Adult white male in no distress. Normotensive. Pulse 102 bpm and regular without ectopy. Respirations 18 unlabored. Skin: no ecchymoses or generalized lesions. HEENT: unremarkable. Neck: JVP at the clavicle at 90 degrees, no carotid bruits. Lungs: clear. Cardiac: regular rhythm, normal S1-2, no murmur. Abdomen: benign. Extremities: Right leg edematous with erythema and bullous foot lesions. Left leg with no edema, pulses intact. Neurologic: normal affect and conversation, nonfocal. Results & Data Vital Signs (Past 12 Hours) Vital Signs Temp Pulse Pulse Resp BP Pulse Ox O2 Del Method 02/22/23 11:16 97.7 F 102 H 18 124/81 99 Room Air 02/22/23 08:38 90 02/22/23 07:33 97.7 F 80 16 118/68 99 Room Air 02/22/23 04:14 97.9 F 72 20 95/63 L 96 Room Air Laboratory Results BNP minimally elevated at 121. WBC normal, hemoglobin 13.2, normal platelet count. Sodium 134, otherwise normal electrolytes, BUN 11, creatinine 0.71. Diagnostic Findings Chest x-ray showed top normal heart size, no infiltrates or effusions. ECG showed sinus tachycardia at 106 bpm with some minor anterior ST elevation consistent with repolarization variant, otherwise unremarkable. Echocardiogram showed borderline dilated left ventricle with mild to moderate reduction left ventricular systolic function (EF 40 to 45%), mild to moderate global hypokinesis, moderately dilated inferior vena cava, no significant valvular disease on very technically limited Doppler. PG Care Time/CCT Total # of Minutes Spent Total Time Spent with Patient: Total time spent is greater than 50% in coordination of care (as documented) at patient's floor/unit and/or counseling patient: Coding Level of Care Code 03908 IN/OBS CONSULT LVL 4,60M Diagnoses Cardiomyopathy I42.9 Sinus tachycardia R00.0 Cellulitis of right lower extremity L03.115
[2023-02-22] MEDS ORDERED: VANCOMYCIN LEVEL ONE (15:30)
--- NOTE | 2023-02-22 17:35 | Pharmacy Report ---
Pharmacy PK ABX Note - Date of Service February 22, 2023 - Assessment and Plan Assessment 02/22/23: * Reviewed vancomycin trough, level within goal range (est AUC/TREMAINE 487), continue vancomycin 1500mg Q8H. 02/21/23: * Cultures negative thus far. Leukocytosis markedly improved (WBC: 18.7 -> 9.5 K) * MRI findings consistent with cellulitis and possible myositis 02/20/23: * 37 year old M receiving empiric vancomycin and Unasyn for treatment of right lower extremity cellulitis secondary to shop injury (sheet-metal). Lower extremity CT shows extensive subcutaneous edema/skin thickening, which favors cellulitis. No evidence of osteomyelitis. Leukocytosis improved overnight (18 K -> 12 K), renal function stable. Pertinent microbiologic data includes: blood and right leg cultures pending. Day # 3 of antimicrobial therapy. Plan Vancomycin * Continue Current regimen: 1500 mg IV every 8 hours * Will repeat level in the next 48-72 hours if therapy is continued and/or change in patient clinical status Zosyn * 4.5 g IV q8h - dosed appropriately, no change Pharmacy will continue to follow and will adjust dose/frequency as necessary. Thank you. Pharmacy has transitioned to AUC monitoring for vancomycin. AUC/TREMAINE is the preferred PK/PD target and is associated with decreased risk of nephrotoxicity compared to traditional trough targets.
[2023-02-22 17:52] LABS: Appearance Urine Clear (Clear); Bacteria Urine Automated Negative (Negative); Bilirubin Urine Negative (Negative); Blood Urine Negative (Negative); Color Urine Yellow; Epithelial Cell Urine Auto 20-30 /lpf (0-5); Glucose Urine UA Negative (Negative); Ketones Urine Negative (Negative); Leukocyte Esterase Urine Negative (Negative); Nitrite Urine Negative (Negative); Protein Urine 1+ (Negative); Specific Gravity Urine 1.018 (1.000-1.030); Urobilinogen Urine Negative (Negative)
[2023-02-23] MEDS: VANCOMYCIN HCL 1,500 MG in SODIUM CHLORIDE 0.9% 500 ML IV SCH ×2 (00:11→08:17)
[2023-02-23] MEDS: PIPERACILLIN/TAZOBACTAM 4.5 GM in DEXTROSE 5% 100 ML IV SCH ×2 (00:12→10:19)
[2023-02-23] MEDS: HYDROmorphone INJ 0.5 MG/0.5 ML SYR IV PRN ×4 (02:21→21:12)
[2023-02-23] MEDS: ACETAMINOPHEN 325 MG TAB PO PRN ×3 (02:21→19:38)
[2023-02-23] MEDS: oxyCODONE HCL IR 5 MG TAB (IMMEDIATE RELEASE) PO PRN ×4 (04:40→23:09)
[2023-02-23 07:23] LABS: Basophils # (auto) 0.07 K/uL (0-0.2); Basophils % (auto) 0.8 %; Eosinophils # (auto) 0.33 K/uL (0-0.50); Eosinophils % (auto) 3.7 %; Hematocrit (blood only) 38.5 % (42.0-52.0); Immature Granulocytes % (auto) 3.4 %; Lymphocytes # (auto) 1.14 K/uL (1.2-3.4); Lymphocytes % (auto) 12.9 %; Mean Corpuscular Hemoglobin 29.5 pg (25.0-34.0); Mean Corpuscular Hgb Conc 33.8 g/dL (32.0-36.0); Mean Corpuscular Volume 87.5 fL (80.0-100.0); Mean Platelet Volume 8.7 fL (9.4-12.4); Monocytes # (auto) 0.88 K/uL (0.11-0.59); Monocytes % (auto) 9.9 %; Neutrophils # (auto) 6.15 K/uL (1.40-6.50); Neutrophils % (auto) 69.3 %; Platelet Count 224 K/uL (130-400); RDW Coefficient of Variation 12.8 % (11.5-14.5); RDW Standard Deviation 40.8 fL (36.4-46.3); White Blood Count 8.87 K/ul (4.8-10.8)
--- NOTE | 2023-02-23 07:38 | Hospitalist Progress Note ---
Date of Service February 23, 2023 Assessment & Plan (1) Sepsis: Plan: 37-year-old male who sustained a shop injury with a cut on sheet-metal to his right lower extremity which had proceeding swelling/edema and which has rapidly worsened with swelling, overlying erythema, lymphangitis, and pain limiting weightbearing. He is febrile with a leukocytosis and has had shaking chills/rigors over the last 24 hours.Sepsis w/ Tachycardia to 140-160s, WBC 18.7k, temp 38.1C - due to RLE cellulitis, POA . CT RLE w/o fracture or dislocation, extensive subcutaneous edema/skin thickening w/i RLE most pronounced w/i R ankle. 3cm blister along medial aspect ankle/hindfoot. NOT loculated fluid collection MRI w/o osteo or fluid collection. Findings c/w cellulitis, possible myositis. CK wnl on check Ortho consulted, Dr Blevins On exam 02/20 w/ streaking beyond markings and abx Unasyn/Vanco changed to Zosyn/Vanco. concerns for nec fasc (bullous disease, appearing like group A strep infection on initial examination) Vanco trough level low 02/21, increased to q8h dosing by pharmacy and continued on Zosyn Discussed with pharmacy to continue IV antibiotics through this morning--> given improvement on exam, less erythema/edema, no further fevers will switch to Bactrim/Keflex (no prior hx of pseudomonas) Monitoring response to PO abx in AM, but if continued improvements, patient is hopeful for dc in the next 24-48 hours WBC wnl, remaining AFEBRILE (last temp 37.8C on 02/20) Blood cultures remain NGTD. Cx from bedside debridement with Dr Blevins 02/21 no growth on preliminary Pain control -- Tylenol, oxyodone, dilaudid IV as needed Bowel regimen -- reports moving his bowels without issue Lovenox SQ ordered for DVT prophylaxis Monitor labs on repeat/exam (2) Cellulitis of right lower extremity: Plan: Abx as above, US dopplers NEGATIVE for DVT Was given Tdap in ER CRP to have been ordered on admit per H&P but doesn't appear ever drawn MRI w/o evidence for osteo or abscess at time of study Ortho consulted as above Improving on abx, switching to PO for this evening and will monitor response Wound RN consulted -- using xeroform, double layer, changing daily/as needed (did take down today, looking improved) Elevate extremity Will need to consider arterial studies given poor wound healing baseline/MAXX once cellulitis improved (not able to do prior due to pain) Monitor response on PO abx (3) Tachycardia: Plan: EKG w/ sinus tachycardia on admit, no arrhythmia on telemetry at present -- pt reported a history of chest tightness and lower extremity swelling, with hx blood/cardiac disorder in parent but unsure. Dopplers negative for DVT. Not hypotensive/hypoxic to warrant CT Chest for PE at present CXR w/o acute process TSH wnl Patient states long standing hx elevated HR at baseline outpatient -- had been cutting back caffeine intake/etc Echo w/ slightly reduced EF -- cardiology consulted Patient w/ high level physical activity at baseline, LV dysfunction would not seem to warrant chronic tachycardia but possibly chronic tachycardia causing mild LV systolic dysfunction If absence of symptoms at present not to specifically treat. THey will schedule him for stress echocardiogram in 1 month -- if has normal LV systolic reserve would remain unclear that he actually has a cardiomyopathy. However if does have limited systolic reserve, will need further eval as to etiology and preventative treatment with SARAH/ARB and low dose BB may be warranted Monitoring on telemetry -- rates much improved with abx coverage/pain control -- currently NSR 80s, last night was up to low 100s (4) HTN (hypertension): Plan: elevated 2nd to pain, monitor -- improved with control Per cards, no need for acute treatment at this time (5) CHF (congestive heart failure): Plan: no prior diagnosis, not on any medications LV dysfunction ? to long standing cardiomyopathy vs other Cards on consulted as above and arranging outpatient eval for further evaluation/stress echo in 1 month No hypoxia at present/pulmonary congestion/etc Monitor Did get 1x dose lasix 20mg IV earlier in the stay to help with edema -- nothing further (6) Hyponatremia: Plan: 128 on admit, 130 after IVF --> 129 after dose IV lasix but kidney function improved TSH wnl Urine osm 287, urine na 98, serum osm 287. ?SIADH from pain, elevated Na from diuretic use -- nothing further Also discontinued tramadol as ordered for pain/switched to PO oxycodone Cortisol not significantly low -- 11.75 Na 136 on AM labs and will monitor will check CK w/ labs given blood on UA but no RBC. Kidney function stable. Plan continued inpatient stay, switching to PO abx as above and monitoring response Admission and Anticipated Discharge Date Admission Date: February 19, 2023 Supervising Physician Co-Signing Physician Notes ZOYA Supervision Note: I did not personally see or examine the patient today, but I verified all ibrahim points of ZOYA Myers's assessment and plan with the following exceptions/additions: None Subjective eval this morning, sitting up in bed, eating lunch. improvement in pain/swelling/redness. Dressing removed, prior blister to posterior heal actually decreased in size. Lateral aspect healing well. no fever/chills. No CP/SOb at present. HRs better controlled. Seen by cards and outpatient testing being arranged for at discharge. Discussed blood cultures remaining NGTD at present and planning to switch to PO abx and if continues to look better tomorrow possible dc on PO abx. Questions/concerns addressed at this time. Physical Exam Physical Exam: General: WD male sitting up in bed eating breakfast, NAD, reported feeling improved HEENT: head atraumatic, normocephalic, pupils equal in size/reactive to light Resp: CTA, no increased work of breathing, on room air 98% CV: regular rhythm, rates 80-90s, b/l LE edema present, RLE>LLE due to cellulitis, less edema today, cap refill wnl, warm to the touch GI: +BS, soft/NT MSK/Neuro: RLE erythema/edema improving, within markings, less streaking dressing removed with saline, xeroform removed --ulcer beds look good, healthy pink tissue underlying, prior blister to posterior ankle decreased in size, lateral prior bullae rupture looking good, less tender to palpation, no purulant drainage appreciated Psych: AOx3, cooperative with exam, hopeful for dc in the next 24-48 hours pending course Results & Data Results & Data Vital Signs (Past 12 Hours) Vital Signs Temp Pulse Pulse Resp BP BP Pulse Ox 02/23/23 03:22 36.6 C 107 H 16 115/70 97 02/22/23 22:03 101 H 02/22/23 23:37 36.8 C 88 18 97/65 L 98 02/22/23 19:42 36.9 C 98 H 18 120/69 98 O2 Del Method 02/23/23 03:22 Room Air 02/22/23 22:03 02/22/23 23:37 Room Air 02/22/23 19:42 Room Air Laboratory Results 02/23/23 02/23/23 02/23/23 Range/Units 07:03 07:03 07:03 WBC 8.87 (4.8-10.8) K/ul RBC 4.40 L (4.70-6.10) M/uL Hgb 13.0 L (14.0-18.0) g/dl Hct 38.5 L (42.0-52.0) % MCV 87.5 (80.0-100.0) fL MCH 29.5 (25.0-34.0) pg MCHC 33.8 (32.0-36.0) g/dL RDW Std Deviation 40.8 (36.4-46.3) fL RDW Coeff of Eusebio 12.8 (11.5-14.5) % Plt Count 224 (130-400) K/uL MPV 8.7 L (9.4-12.4) fL Immature Gran % (Auto) 3.4 % Neut % (Auto) 69.3 % Lymph % (Auto) 12.9 % [place] % (Auto) 9.9 % Eos % (Auto) 3.7 % Baso % (Auto) 0.8 % Neut # (Auto) 6.15 (1.40-6.50) K/uL Lymph # (Auto) 1.14 L (1.2-3.4) K/uL [place] # (Auto) 0.88 H (0.11-0.59) K/uL Eos # (Auto) 0.33 (0-0.50) K/uL Baso # (Auto) 0.07 (0-0.2) K/uL Immature Gran # (Auto) 0.30 H (0.01-0.20) K/uL Sodium 136 (136-145) mmol/L Potassium 4.6 D (3.5-5.1) mmol/L Chloride 102 (98-107) mmol/L Carbon Dioxide 29 (21-32) mmol/L Anion Gap 5 (3-11) BUN 11 (6-23) mg/dl Creatinine 0.70 (0.6-1.4) mg/dl Est Cr Clr Drug Dosing 161.7 ml/min Est GFR ( Amer) 141.7 ml/min Est GFR (Non-Af Amer) 122.3 ml/min BUN/Creatinine Ratio 15.7 (10-20) Glucose 134 H (70-99(Fasting)) mg/dl Calcium 9.2 (8.6-10.3) mg/dl Magnesium 2.1 (1.7-2.4) mg/dl Cortisol AM Sample 11.75 (6.2-22.6) mcg/dl Urine Color Urine Appearance (Clear) Urine pH (4.5-7.5) Ur Specific [place] (1.000-1.030) Urine Protein (Negative) Urine Glucose (UA) (Negative) Urine Ketones (Negative) Urine Blood (Negative) Urine Nitrite (Negative) Urine Bilirubin (Negative) Urine Urobilinogen (Negative) Ur Leukocyte Esterase (Negative) Urine WBC (Auto) (0-5) /hpf Urine RBC (Auto) (0-4) /hpf U Hyaline Cast (Auto) (0-5) /lpf U Epithel Cells (Auto) (0-5) /lpf Urine Bacteria (Auto) (Negative) Random Vancomycin (10-20) mcg/ml 02/22/23 02/22/23 Range/Units 17:34 15:00 WBC (4.8-10.8) K/ul RBC (4.70-6.10) M/uL Hgb (14.0-18.0) g/dl Hct (42.0-52.0) % MCV (80.0-100.0) fL MCH (25.0-34.0) pg MCHC (32.0-36.0) g/dL RDW Std Deviation (36.4-46.3) fL RDW Coeff of Eusebio (11.5-14.5) % Plt Count (130-400) K/uL MPV (9.4-12.4) fL Immature Gran % (Auto) % Neut % (Auto) % Lymph % (Auto) % [place] % (Auto) % Eos % (Auto) % Baso % (Auto) % Neut # (Auto) (1.40-6.50) K/uL Lymph # (Auto) (1.2-3.4) K/uL [place] # (Auto) (0.11-0.59) K/uL Eos # (Auto) (0-0.50) K/uL Baso # (Auto) (0-0.2) K/uL Immature Gran # (Auto) (0.01-0.20) K/uL Sodium (136-145) mmol/L Potassium (3.5-5.1) mmol/L Chloride (98-107) mmol/L Carbon Dioxide (21-32) mmol/L Anion Gap (3-11) BUN (6-23) mg/dl Creatinine (0.6-1.4) mg/dl Est Cr Clr Drug Dosing ml/min Est GFR ( Amer) ml/min Est GFR (Non-Af Amer) ml/min BUN/Creatinine Ratio (10-20) Glucose (70-99(Fasting)) mg/dl Calcium (8.6-10.3) mg/dl Magnesium (1.7-2.4) mg/dl Cortisol AM Sample (6.2-22.6) mcg/dl Urine Color Yellow Urine Appearance Clear (Clear) Urine pH 7.0 (4.5-7.5) Ur Specific [place] 1.018 (1.000-1.030) Urine Protein 1+ H (Negative) Urine Glucose (UA) Negative (Negative) Urine Ketones Negative (Negative) Urine Blood Negative (Negative) Urine Nitrite Negative (Negative) Urine Bilirubin Negative (Negative) Urine Urobilinogen Negative (Negative) Ur Leukocyte Esterase Negative (Negative) Urine WBC (Auto) 1-5 (0-5) /hpf Urine RBC (Auto) 5-10 H (0-4) /hpf U Hyaline Cast (Auto) 1-5 (0-5) /lpf U Epithel Cells (Auto) 20-30 H (0-5) /lpf Urine Bacteria (Auto) Negative (Negative) Random Vancomycin 12.0 (10-20) mcg/ml PG Care Time/CCT Total # of Minutes Spent Total Time Spent with Patient: Total time spent is greater than 50% in coordination of care (as documented) at patient's floor/unit and/or counseling patient: Coding Level of Care Code 63451 SUB INP/OBS CARE 3/50MIN Diagnoses Sepsis A41.9 Cellulitis of right lower extremity L03.115 Tachycardia R00.0 HTN (hypertension) I10 CHF (congestive heart failure) I50.9 Hyponatremia E87.1
[2023-02-23 07:45] LABS: BUN Creatinine Ratio 15.7 (10-20); Calcium 9.2 mg/dl (8.6-10.3); Creatinine Clr Calc Pharmacy 161.7 ml/min; Est GFR (African American) 141.7 ml/min; Est GFR (Non-African American) 122.3 ml/min; Magnesium 2.1 mg/dl (1.7-2.4); Potassium 4.6 mmol/L (3.5-5.1)
[2023-02-23] MEDS: DOCUSATE SODIUM/SENNA 50/8.6MG TAB PO SCH ×2 (08:20→08:29)
[2023-02-23] MEDS: POLYETHYLENE (MIRALAX) 17 GM PACK PO SCH (08:20)
[2023-02-23] MEDS: ENOXAPARIN INJ 40 MG/0.4 ML SYR SQ SCH (08:51)
[2023-02-23] MEDS: LORazepam 0.5 MG TAB PO PRN ×2 (12:11→19:38)
--- NOTE | 2023-02-23 13:58 | Consultation Report ---
DATE OF CONSULTATION: 02/21/2023. PERTINENT HISTORY: The patient was seen at request of Sheryl Lee M.D., Cherri Torres M.D., and Yasmine Myers PA-C regarding this 37-year-old male who sustained an injury to his anterior right lower extremity when he cut the leg on a piece of sheet metal in his shop at home. He noticed some bleeding at that time. However, this progressed with swelling, redness, pain, and edema, which progressed throughout the right lower extremity. He had pain, which then started to limit his weightbearing and he became febrile. He then presented to the Emergency Department where he was evaluated. Noted to be septic with tachycardia and he was admitted to the hospitalist service. He was placed on IV antibiotics and further management had continued. The patient had a CT of the right lower extremity. This demonstrated no evidence of fracture or dislocation; however, there was noted to be extensive subcutaneous edema, skin thickening, most pronounced within the tissue surrounding the right ankle with a 3 cm blister along the medial aspect of the ankle and hindfoot. There was no evidence of loculated fluid collections. MRI was also performed, which showed no evidence of osteomyelitis or fluid collection or abscess. Findings consistent with cellulitis and a possible myositis. The patient was initially placed on Unasyn, which was then changed to Zosyn. Orthopedics was consulted. The patient was then seen and examined on 02/21/2023 with the patient's who was present at the bedside. The patient was resting after receiving a dose of sedative. Upon awakening, the patient explained that the pain had improved in his right lower extremity since the time of admission and after being placed on IV antibiotics. Still noted significant discomfort along the lower leg extending to the medial border of his right knee. This corresponded with the redness and streaking that he had also noticed. He explained that symptoms were improving. He was somewhat somnolent due to the medications he was given. PAST MEDICAL HISTORY: Epididymo-orchitis; hypertension; lumbar disk herniation with radiculopathy; cellulitis, right lower leg; cellulitis with lymphangitis, right leg. PAST SURGICAL HISTORY: History of lumbar diskectomy, history of back surgery. ALLERGIES: MAGNESIUM SULFATE, HIVES. HOME MEDICATIONS: Glucosamine chondroitin sulfate, omega 3 fatty acid capsules, ibuprofen 200 mg p.r.n., cyclobenzaprine 5 mg p.o. t.i.d. p.r.n. SOCIAL HISTORY: He is . He does use e-cigarettes. Denies significant alcohol use. Denies drug use. He is employed. PHYSICAL EXAMINATION: This is a 37-year-old gentleman, who is lying supine in the hospital room bed with his , significant other present. Somewhat somnolent due to medications. He does awake upon verbal stimulation. Responds to questions appropriately. Cooperative. Focused examination of the right lower extremity demonstrates streaking cellulitis, which appears to be improving of the right lower extremity with abrasion of the anterior mid tibia with eschar. No evidence of abscess or purulence. There were pen lines proximally and distal. The erythema around the ink pen lines appears to be shrinking away from the margins of the pen line. There are wrinkles in the skin, indicating that previous edema has diminished. Still has tenderness to palpation throughout the areas of redness and erythema extending proximally to approximately 3 cm proximal to the medial femoral condyle. There is no evidence of ropiness. There is no fluid collection upon palpation. No pain with passive flexion or extension related to the motion of the muscles or the joints; however, there is discomfort related to the skin. There were large bullae along the medial aspect of the ankle and hindfoot measuring 7.5 x 4 x 1.5 cm and 10 x 4.0 x 1.5 cm fluid-filled blisters, also tender to palpation. Palpable pedal pulses 2/4 in bilateral lower extremities. Sensation is intact. Both lower extremities are warm, and sensation is intact to all sensory distributions, bilateral lower extremities. Range of motion of the right ankle and hindfoot is limited due to related pain at the mid to lower right lower extremity. CT scan and MRI were reviewed. Laboratories reviewed. IMPRESSION: 1. Cellulitis, right lower extremity, ICD-10 L03.115. 2. Superficial puncture/abrasion, right anterior lower extremity. S80.811A 3. Bullae x2 measuring 7.5 x 4.0 x 1.5 cm; 10.0 x 4.0 x 1.5 cm. L13.9, L97.919 RECOMMENDATION: Procedure: After discussion with the patient, I obtained verbal consent and bedside procedure was performed with sterile prep of the right ankle and hindfoot with Betadine solution and next an alcohol solution. Next, the bullae previously measured and noted above were both unroofed and incised with scissors and forceps, releasing the liquid contents under pressure. Sharp dissection was performed to remove any devitalized necrotic tissue and slough down to the ulcered base to the level of the dermis with measurements as noted above. The fluid within the bullae was then cultured and sent for aerobic, anaerobic and Gram stain evaluation. The patient tolerated the procedure well. After irrigating with saline and cleansing the area with sterile 4 x 4s, a Xeroform nonstick dressing was applied, overwrapped with sterile 4 x 4s, ABD pad, and Kerlix roll. CPT 45540, 55598 Further recommendations are made for continuation of IV antibiotic therapy and monitor cultures for any possible need to shift the antibiotic coverage. Maintain limited weightbearing on the right lower extremity to decrease the patient discomfort while encouraging gentle range of motion of the right lower extremity including the hindfoot, ankle, toes and knee. Pain medication as needed. No need for further operative intervention at this time. E/M [id number] Thank you for the opportunity to consult in the care of this patient. He may follow up as an outpatient if necessary with Dr. Blevins at [facility], . Call for a follow up appointment. Job ID: [id number] [facility]
[2023-02-23] MEDS: cephALEXin 500 MG CAP PO SCH ×2 (17:26→23:08)
[2023-02-23] MEDS: SULFAMETHOXAZOLE/TRIMETHOPRIM DS 800/160MG TAB PO SCH (21:13)
[2023-02-24] MEDS: cephALEXin 500 MG CAP PO SCH ×2 (05:36→11:38)
[2023-02-24] MEDS: ACETAMINOPHEN 325 MG TAB PO PRN (05:36)
[2023-02-24] MEDS: HYDROmorphone INJ 0.5 MG/0.5 ML SYR IV PRN (05:37)
[2023-02-24 06:39] LABS: Hematocrit (blood only) 40.8 % (42.0-52.0); Hemoglobin 14.1 g/dl (14.0-18.0); Mean Corpuscular Hemoglobin 29.6 pg (25.0-34.0); Mean Corpuscular Hgb Conc 34.6 g/dL (32.0-36.0); Mean Corpuscular Volume 85.5 fL (80.0-100.0); Mean Platelet Volume 9.1 fL (9.4-12.4); Platelet Count 289 K/uL (130-400); RDW Coefficient of Variation 13.2 % (11.5-14.5); RDW Standard Deviation 41.2 fL (36.4-46.3); Red Blood Count 4.77 M/uL (4.70-6.10); White Blood Count 10.03 K/ul (4.8-10.8)
[2023-02-24] MEDS: oxyCODONE HCL IR 5 MG TAB (IMMEDIATE RELEASE) PO PRN (06:42)
[2023-02-24 06:58] LABS: Basophils # (auto) 0.14 K/uL (0-0.2); Basophils % (auto) 1.4 %; Eosinophils # (auto) 0.33 K/uL (0-0.50); Eosinophils % (auto) 3.3 %; Immature Granulocytes # (auto) 0.69 K/uL (0.01-0.20); Immature Granulocytes % (auto) 6.9 %; Lymphocytes # (auto) 1.36 K/uL (1.2-3.4); Lymphocytes % (auto) 13.6 %; Monocytes # (auto) 0.94 K/uL (0.11-0.59); Monocytes % (auto) 9.4 %; Neutrophils # (auto) 6.57 K/uL (1.40-6.50); Neutrophils % (auto) 65.4 %
--- NOTE | 2023-02-24 07:36 | Hospitalist Progress Note ---
Date of Service February 24, 2023 Assessment & Plan (1) Sepsis: Plan: 37-year-old male who sustained a shop injury with a cut on sheet-metal to his right lower extremity which had proceeding swelling/edema and which has rapidly worsened with swelling, overlying erythema, lymphangitis, and pain limiting weightbearing. He is febrile with a leukocytosis and has had shaking chills/rigors over the last 24 hours.Sepsis w/ Tachycardia to 140-160s, WBC 18.7k, temp 38.1C - due to RLE cellulitis, POA . CT RLE w/o fracture or dislocation, extensive subcutaneous edema/skin thickening w/i RLE most pronounced w/i R ankle. 3cm blister along medial aspect ankle/hindfoot. NOT loculated fluid collection MRI w/o osteo or fluid collection. Findings c/w cellulitis, possible myositis. CK wnl on check Ortho consulted, Dr Blevins On exam 02/20 w/ streaking beyond markings and abx Unasyn/Vanco changed to Zosyn/Vanco. concerns for nec fasc (bullous disease, appearing like group A strep infection on initial examination) Vanco trough level low 02/21, increased to q8h dosing by pharmacy and continued on Zosyn Discussed with pharmacy to continue IV antibiotics through this morning--> given improvement on exam, less erythema/edema, no further fevers will switch to Bactrim/Keflex (no prior hx of pseudomonas) Monitoring response to PO abx in AM, but if continued improvements, patient is hopeful for dc in the next 24-48 hours WBC wnl, remaining AFEBRILE (last temp 37.8C on 02/20) Blood cultures remain NGTD. Cx from bedside debridement with Dr Blevins 02/21 no growth on preliminary Pain control -- Tylenol, oxyodone, dilaudid IV as needed Bowel regimen -- reports moving his bowels without issue Lovenox SQ ordered for DVT prophylaxis Monitor labs on repeat/exam (2) Cellulitis of right lower extremity: Plan: Abx as above, US dopplers NEGATIVE for DVT Was given Tdap in ER CRP to have been ordered on admit per H&P but doesn't appear ever drawn MRI w/o evidence for osteo or abscess at time of study Ortho consulted as above Improving on abx, switching to PO for this evening and will monitor response Wound RN consulted -- using xeroform, double layer, changing daily/as needed (did take down today, looking improved) Elevate extremity Will need to consider arterial studies given poor wound healing baseline/MAXX once cellulitis improved (not able to do prior due to pain) Monitor response on PO abx (3) Tachycardia: Plan: EKG w/ sinus tachycardia on admit, no arrhythmia on telemetry at present -- pt reported a history of chest tightness and lower extremity swelling, with hx blood/cardiac disorder in parent but unsure. Dopplers negative for DVT. Not hypotensive/hypoxic to warrant CT Chest for PE at present CXR w/o acute process TSH wnl Patient states long standing hx elevated HR at baseline outpatient -- had been cutting back caffeine intake/etc Echo w/ slightly reduced EF -- cardiology consulted Patient w/ high level physical activity at baseline, LV dysfunction would not seem to warrant chronic tachycardia but possibly chronic tachycardia causing mild LV systolic dysfunction If absence of symptoms at present not to specifically treat. THey will schedule him for stress echocardiogram in 1 month -- if has normal LV systolic reserve would remain unclear that he actually has a cardiomyopathy. However if does have limited systolic reserve, will need further eval as to etiology and preventative treatment with SARAH/ARB and low dose BB may be warranted Monitoring on telemetry -- rates much improved with abx coverage/pain control -- currently NSR 80s, last night was up to low 100s (4) HTN (hypertension): Plan: elevated 2nd to pain, monitor -- improved with control Per cards, no need for acute treatment at this time (5) CHF (congestive heart failure): Plan: no prior diagnosis, not on any medications LV dysfunction ? to long standing cardiomyopathy vs other Cards on consulted as above and arranging outpatient eval for further evaluation/stress echo in 1 month No hypoxia at present/pulmonary congestion/etc Monitor Did get 1x dose lasix 20mg IV earlier in the stay to help with edema -- nothing further (6) Hyponatremia: Plan: 128 on admit, 130 after IVF --> 129 after dose IV lasix but kidney function improved TSH wnl Urine osm 287, urine na 98, serum osm 287. ?SIADH from pain, elevated Na from diuretic use -- nothing further Also discontinued tramadol as ordered for pain/switched to PO oxycodone Cortisol not significantly low -- 11.75 Na 136 on AM labs and will monitor will check CK w/ labs given blood on UA but no RBC. Kidney function stable. Plan continued inpatient stay, switching to PO abx as above and monitoring response Admission and Anticipated Discharge Date Admission Date: February 19, 2023 Results & Data Results & Data Vital Signs (Past 12 Hours) Vital Signs Temp Pulse Pulse Resp BP Pulse Ox O2 Del Method 02/24/23 07:33 99 H 02/24/23 02:48 36.8 C 101 H 18 112/69 95 Room Air 02/23/23 22:01 106 H 02/23/23 23:06 36.6 C 102 H 20 121/84 96 Room Air 02/23/23 19:53 37.1 C 107 H 16 130/84 96 Room Air Laboratory Results 02/24/23 02/23/23 02/23/23 Range/Units 05:29 15:18 07:03 WBC 10.03 (4.8-10.8) K/ul RBC 4.77 (4.70-6.10) M/uL Hgb 14.1 (14.0-18.0) g/dl Hct 40.8 L (42.0-52.0) % MCV 85.5 (80.0-100.0) fL MCH 29.6 (25.0-34.0) pg MCHC 34.6 (32.0-36.0) g/dL RDW Std Deviation 41.2 (36.4-46.3) fL RDW Coeff of Eusebio 13.2 (11.5-14.5) % Plt Count 289 (130-400) K/uL MPV 9.1 L (9.4-12.4) fL Immature Gran % (Auto) 6.9 % Neut % (Auto) 65.4 % Lymph % (Auto) 13.6 % Bennett % (Auto) 9.4 % Eos % (Auto) 3.3 % Baso % (Auto) 1.4 % Neut # (Auto) 6.57 H (1.40-6.50) K/uL Lymph # (Auto) 1.36 (1.2-3.4) K/uL Bennett # (Auto) 0.94 H (0.11-0.59) K/uL Eos # (Auto) 0.33 (0-0.50) K/uL Baso # (Auto) 0.14 (0-0.2) K/uL Immature Gran # (Auto) 0.69 H (0.01-0.20) K/uL Peripher Smr Path Cons Pending Sodium (136-145) mmol/L Potassium (3.5-5.1) mmol/L Chloride (98-107) mmol/L Carbon Dioxide (21-32) mmol/L Anion Gap (3-11) BUN (6-23) mg/dl Creatinine (0.6-1.4) mg/dl Est Cr Clr Drug Dosing ml/min Est GFR ( Amer) ml/min Est GFR (Non-Af Amer) ml/min BUN/Creatinine Ratio (10-20) Glucose (70-99(Fasting)) mg/dl Calcium (8.6-10.3) mg/dl Magnesium (1.7-2.4) mg/dl Total Creatine Kinase (30-223) U/L Cortisol AM Sample 11.75 (6.2-22.6) mcg/dl 02/23/23 Range/Units 07:03 WBC (4.8-10.8) K/ul RBC (4.70-6.10) M/uL Hgb (14.0-18.0) g/dl Hct (42.0-52.0) % MCV (80.0-100.0) fL MCH (25.0-34.0) pg MCHC (32.0-36.0) g/dL RDW Std Deviation (36.4-46.3) fL RDW Coeff of Eusebio (11.5-14.5) % Plt Count (130-400) K/uL MPV (9.4-12.4) fL Immature Gran % (Auto) % Neut % (Auto) % Lymph % (Auto) % Bennett % (Auto) % Eos % (Auto) % Baso % (Auto) % Neut # (Auto) (1.40-6.50) K/uL Lymph # (Auto) (1.2-3.4) K/uL Bennett # (Auto) (0.11-0.59) K/uL Eos # (Auto) (0-0.50) K/uL Baso # (Auto) (0-0.2) K/uL Immature Gran # (Auto) (0.01-0.20) K/uL Peripher Smr Path Cons Sodium 136 (136-145) mmol/L Potassium 4.6 D (3.5-5.1) mmol/L Chloride 102 (98-107) mmol/L Carbon Dioxide 29 (21-32) mmol/L Anion Gap 5 (3-11) BUN 11 (6-23) mg/dl Creatinine 0.70 (0.6-1.4) mg/dl Est Cr Clr Drug Dosing 161.7 ml/min Est GFR ( Amer) 141.7 ml/min Est GFR (Non-Af Amer) 122.3 ml/min BUN/Creatinine Ratio 15.7 (10-20) Glucose 134 H (70-99(Fasting)) mg/dl Calcium 9.2 (8.6-10.3) mg/dl Magnesium 2.1 (1.7-2.4) mg/dl Total Creatine Kinase 52 (30-223) U/L Cortisol AM Sample (6.2-22.6) mcg/dl PG Care Time/CCT Total # of Minutes Spent Total Time Spent with Patient: Total time spent is greater than 50% in coordination of care (as documented) at patient's floor/unit and/or counseling patient: Coding Diagnoses Sepsis A41.9 Cellulitis of right lower extremity L03.115 Tachycardia R00.0 HTN (hypertension) I10 CHF (congestive heart failure) I50.9 Hyponatremia E87.1
[2023-02-24] MEDS ORDERED: oxyCODONE HCL IR 5 MG TAB (IMMEDIATE RELEASE) PO PRN (08:04)
[2023-02-24 08:17] LABS: Alanine Aminotransferase 80 U/L (7-52); Albumin Globulin Ratio 0.7 (0.9-2); Albumin Level 3.3 gm/dl (3.4-5.0); Alkaline Phosphatase 208 U/L (34-104); Anion Gap 9 (3-11); Aspartate Aminotransferase 71 U/L (13-39); Bilirubin,Total 0.6 mg/dl (0.2-1.0); Blood Urea Nitrogen 15 mg/dl (6-23); Calcium 9.2 mg/dl (8.6-10.3); Carbon Dioxide 25 mmol/L (21-32); Chloride 99 mmol/L (98-107); Creatinine Clr Calc Pharmacy 188.6 ml/min; Est GFR (African American) > 150.0 ml/min; Est GFR (Non-African American) 130.3 ml/min; Globulin 4.8 gm/dl (2.5-4.0); Glucose 104 mg/dl (70-99(Fasting)); Potassium 4.3 mmol/L (3.5-5.1); Sodium 133 mmol/L (136-145); Total Protein 8.1 gm/dl (6.0-8.3)
[2023-02-24] MEDS: SULFAMETHOXAZOLE/TRIMETHOPRIM DS 800/160MG TAB PO SCH (08:51)
[2023-02-24] MEDS: ENOXAPARIN INJ 40 MG/0.4 ML SYR SQ SCH (08:52)
[2023-02-24] MEDS: DOCUSATE SODIUM/SENNA 50/8.6MG TAB PO SCH (08:55)
[2023-02-24] MEDS: POLYETHYLENE (MIRALAX) 17 GM PACK PO SCH (08:57)
[2023-02-24] MEDS: LORazepam 0.5 MG TAB PO PRN (11:41)
--- NOTE | 2023-02-24 12:26 | Discharge Summary ---
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 While in the ER patient is ill-appearing, heart rate 134, temperature of 99.9, and with rigors while in the ER patient has been started on Rocephin/vancomycin empiric therapy and given Tdap. Patient seen at the bedside, patient has had rigors/fever/chills worsening over the last 24 hours, and severe pain in the right lower extremity with tense swelling and the inability to bear weight due to pain. Seen at the bedside. Hemant reports that 4 days ago he had a cut to his right lower extremity while working in the shop. Cut was on sheet-metal. He reports that prior to this he has had intermittent swelling in his right greater than left lower extremity intermittently which gets worse throughout the day and has had some intermittent feelings of shortness of breath. He has never had issues with a blood clot or heart attack, reports he thinks there was an issue with blood in his father side and possibly clots and possibly involving the heart? Cardiomyopathy but he is not sure. He reports his swelling of his legs has somewhat improved with elevation, but not completely and is not always associated with just being on his feet for long periods of time. Swelling was present at the area that got caught and which is subsequently worsened and becoming more tense and swollen over the last 4 days. He has a feeling of his heart racing and being tense, denies chest pain. He feels a little short of breath and notes that he is very worried about the infection. He denies having difficulty breathing or pain with inspiration. He has not had any severe infections like this in the past. He does have a history of lumbar surgery with metal hardware for radiculopathy. He denies abdominal pain, nausea, vomiting, diarrhea. He reports his pain is improved since getting antibiotics and morphine in the ER. He denies history of tobacco/alcohol use. He denies allergies to antibiotics and denies any allergy to contrast which she has had before without difficulty noting it just makes him feel warm/flushed. full code Admission Exam Per Admitting Provider General: A&Ox3. NAD. Cooperative. HEENT: Atraumatic, normocephalic. Vision/hearing intact Pulm: CTAB A&P. -wheezes, -rales, -rhonchi. Symmetrical chest rise. No increased work of breathing. No respiratory distress. Cardiac: Tachycardic, regular, -mrg. Radial pulses intact and symmetrical. Abdominal: Nontender, nondistended, soft. BS present. Extremities: See photos below. Sensation of soft touch is intact in feet bilaterally qualitatively diminished on the right, ankle dorsiflexion/plantarflexion is 5/5 bilaterally but significantly limited on the right due to pain. Crepitus is not present on exam. 3 cm fluid-filled bullae present at right medial foot Principal Diagnosis RLE Cellulitis Discharge Exam General: WD male sitting up in bed eating breakfast, NAD, reported feeling improved HEENT: head atraumatic, normocephalic, pupils equal in size/reactive to light Resp: CTA, no increased work of breathing, on room air 98% CV: regular rhythm, rates 80-90s, b/l LE edema present, RLE>LLE due to cellulitis, less edema today, cap refill wnl, warm to the touch GI: +BS, soft/NT MSK/Neuro: RLE erythema/edema improving -- much improved compared to yesterday, within markings, less streaking dressing c/d/i-ulcer beds look good, healthy pink tissue underlying, prior blister to posterior ankle decreased in size, lateral prior bullae rupture looking good, less tender to palpation, no purulent drainage appreciated Psych: AOx3, cooperative with exam Discharge Data Allergies Allergy/AdvReac Type Severity Reaction Status Date / Time magnesium sulfate Allergy Unknown HIVES Verified 09/01/19 12:56 No Known Drug Allergies Allergy Unknown Verified 12/06/14 11:36 Consultations 02/20/23 10:58 Consult Orthopedic Surgery Routine 02/21/23 17:22 Consult Cardiology Routine Ordered Studies Tibia/Fibula X-Ray 02/19/23 12:02 XR tibia fibula RT 2V CLINICAL HISTORY: open wound mid ant can, cellulitis lower leg COMPARISON: Right ankle radiographs December 27, 2009. FINDINGS: No fracture within the right tibia or fibula is identified. There is no evidence for acute osteomyelitis. Right lower leg and ankle soft tissue swelling is present. No radiographic evidence for soft tissue gas. IMPRESSION: 1. No fracture or evidence for acute osteomyelitis within the right tibia or fibula. 2. Right lower leg and ankle soft tissue swelling. ACT 112: Negative or not required by law. Electronically signed by: Kiko Sanders M.D. 02/19/2023 1:[address] 02/19/23 13:14 CT SCAN OF THE RIGHT FEMUR WITH IV CONTRAST CLINICAL HISTORY: Cellulitis. Right leg swelling and erythema. COMPARISON STUDY: No priors. TECHNIQUE: Following the IV administration of 94 cc of Optiray 320, CT scan of the right femur is performed from the bony pelvis to the knee. Images are reviewed in the axial, sagittal, and coronal planes. IV contrast was administered without complication. A dose lowering technique was utilized adhering to the principles of ALARA. FINDINGS: The skeletal structures are well mineralized. There is no evidence of right femoral fracture. There is no avascular necrosis of the right femoral head. The visualized right hemipelvis appears intact. The hip and knee joints are grossly maintained. No lytic or blastic lesion is seen. The regional musculature is normal in appearance. Minimal subcutaneous soft tissue edema is seen within the anterior/medial aspect of the thigh. There is also deep soft tissue edema posterior to the knee. No organized fluid collection is identified. The femoral and popliteal vessels are patent as imaged. Prominent right inguinal and external iliac chain lymph nodes are likely reactive. The largest node is seen on image #116 and measures 2.2 x 1.7 cm. The bladder, prostate, and seminal vesicles are normal as visualized. No soft tissue gas is seen. A left popliteal cyst is partially visualized. IMPRESSION: 1. Normal CT appearance of the right femur. 2. Mild soft tissue edema is seen in the anterior/medial right thigh, there is also soft tissue edema posterior to the knee. Correlate clinically for evidence of cellulitis. 3. No organized fluid collection is seen to indicate abscess. 4. A left popliteal cyst is partially visualized. ACT 112: Negative or not required by law. Dictated: 02/19/2023 2:23 PM Transcribed: 02/19/2023 2:36 PM Nicole [id number] JOSEPH_Maicol [id number] Electronically signed by: Allen Johnson M.D. 02/19/2023 2:[address] 02/19/23 13:[address] WITH CONTRAST CLINICAL HISTORY: Suspected cellulitis w lymphangitis/inguinal adenopathy. COMPARISON STUDY: Right knee radiographs December 28, 2019 and right tibia and fibula radiographs February 19, 2023. TECHNIQUE: Axial images of the right foot were obtained following intravenous injection of 94 cc of Optiray 320 IV. Sagittal and coronal reconstructions were viewed. Automated exposure control was utilized for the study. A dose lowering technique was utilized adhering to the principles of ALARA. FINDINGS: Please note that the CTs of the right femur and right tibia and fibula will be reported separately. Tarsometatarsal joints are intact. Please note that the distalmost aspects of several toes were not included on this exam. However, no fractures are identified within visualized portions of the right foot. There is no CT evidence for acute osteomyelitis. No fluid collection is identified. No soft tissue gas is noted. Note is made of moderate subcutaneous edema of the dorsal right mid and forefoot. There is also diffuse right lower leg soft tissue swelling. Fluid along the fascia is noted. Findings will be further described on the CT of the right tibia and fibula. There are no fractures within the right tibia or fibula. There is no evidence for acute osteomyelitis. IMPRESSION: 1. No acute fracture or evidence for acute osteomyelitis within the right foot. 2. Diffuse right lower extremity soft tissue swelling, greatest within the lower leg and ankle suggestive of cellulitis. No fluid collection to suggest abscess. In addition, associated fluid along the fascia. No soft tissue gas. ACT 112: Negative or not required by law. Electronically signed by: Kiko Sanders M.D. 02/19/2023 2:[address] 02/19/23 13:14 CT tib/fib RT w con CT DOSE: 893.14 mGy.cm CLINICAL HISTORY: suspected cellulitis w lymphangitis/inguinal blair. . Right leg swelling. TECHNIQUE: Multiaxial CT was the right tibia/fibular were performed following the intravenous administration of contrast and reformatted in the sagittal and coronal planes. A dose lowering technique was utilized adhering to the principles of ALARA. COMPARISON STUDY: None. FINDINGS: No fracture or dislocation within the right tibia or fibula. No destructive changes to suggest an osteomyelitis. There is extensive subcutaneous edema and skin thickening within the right lower leg most pronounced within the right ankle. There is a 3 cm skin blister along the medial aspect of the ankle/hindfoot. No loculated fluid collections to suggest an abscess. The major vascular structures enhance normally. There is also focal soft tissue edema within the fascial planes of the posterior leg surrounding the vessels.. This is nonspecific but could be due to a ruptured popliteal cyst or infectious process. No significant knee effusion. No radio opaque foreign bodies or soft tissue gas identified. IMPRESSION: 1. Extensive subcutaneous edema and skin thickening within the right lower leg most pronounced distally. This is nonspecific but favors a cellulitis. 2. No loculated fluid collections to suggest an abscess. 3. There is associated fluid along the posterior fascial planes within the proximal right lower leg. This could also represent underlying infection or possibly a ruptured popliteal cyst. 4. No evidence for an osteomyelitis. ACT 112: Negative or not required by law. Electronically signed by: John Georges M.D. 02/19/2023 2:40 PM Venous Doppler Study 02/19/23 13:32 ULTRASOUND BILATERAL LOWER EXTREMITY VENOUS CLINICAL HISTORY: Lower extremity edema. COMPARISON STUDY: No priors. TECHNIQUE: Real-time, grayscale, and color Doppler sonography of the deep veins of the right and left lower extremity was performed from the inguinal crease to the calf. Compression and augmentation were utilized. FINDINGS: There is no sonographic evidence of deep venous thrombosis identified in the right or left lower extremity. The common femoral, superficial femoral, and popliteal veins are patent and normally compressible bilaterally. The greater saphenous vein and the profunda femoris vein at the junction with the common femoral vein are clear in both legs. The visualized calf veins are patent bilaterally. Prominent right groin nodes are likely reactive. A left popliteal cyst measures 4.0 x 1.7 x 2.8 cm. Soft tissue edema is present in the right lower extremity. IMPRESSION: 1. There is no sonographic evidence of deep venous thrombosis identified in the right or left lower extremity. 2. Left popliteal cyst. ACT 112: Negative or not required by law. Electronically signed by: Allen Johnson M.D. 02/19/2023 5:47 PM Lower Extremity MRI 02/20/23 10:58 MR lower leg RT wo/w con CLINICAL HISTORY: RLE cellulitis TECHNIQUE: Multisequence, multiplanar MR images of the right lower extremity were obtained without contrast COMPARISON: None available at the time of this dictation. FINDINGS: Subcutaneous edema and edema and enhancement within the muscular fascicles noted. No bony edema is seen. IMPRESSION: Findings are compatible with cellulitis and possible myositis, however no osteomyelitis or abscess is seen. ACT 112: Negative or not required by law. Electronically signed by: Jerod Hercules M.D. 02/20/2023 2:34 PM Chest X-Ray 02/20/23 11:23 SINGLE VIEW CHEST CLINICAL HISTORY: Dyspnea FINDINGS: An AP, portable, upright chest radiograph is compared to study dated 11/16/2014. The cardiomediastinal silhouette is unremarkable. The lungs and pleur al spaces are clear. No pneumothorax is seen. The bony thorax is grossly intact. IMPRESSION: No active disease in the chest. ACT 112: Negative or not required by law. Electronically signed by: Allen Johnson M.D. 02/20/2023 1:14 PM Orbit X-Ray 02/20/23 11:42 BONY ORBITS 3 VIEWS CLINICAL HISTORY: MRI clearance. FINDINGS: 3 views of the bony orbits are compared to study dated 01/05/2014. There is no radiodense/metallic foreign body seen in the region of the bony orbits. The bony orbits are intact as imaged. The visualized paranasal sinuses and the mastoid air cells appear clear. The imaged calvarium appears intact. IMPRESSION: There is no radiodense/metallic foreign body seen in the region of the bony orbits. ACT 112: Negative or not required by law. Electronically signed by: Allen Johnson M.D. 02/20/2023 12:58 PM 02/19/2023 ECHOCARDIOGRAM NO prior study for comparison. The study was technically difficult. LV is borderline dilated. LV systolic function mild-moderately dilated. EF 40-45%. MIld to moderated global hypokinesis of left venticule. IVC moderately dilated. No significcant valvular disease on very technically limited doppler. Hospital Course (1) Sepsis: 37-year-old male who sustained a shop injury with a cut on sheet-metal to his r ight lower extremity which had proceeding swelling/edema and which has rapidly worsened with swelling, overlying erythema, lymphangitis, and pain limiting weightbearing. He is febrile with a leukocytosis and has had shaking chills/rigors over the last 24 hours.Sepsis w/ Tachycardia to 140-160s, WBC 18.7k, temp 38.1C - due to RLE cellulitis, POA . CT RLE w/o fracture or dislocation, extensive subcutaneous edema/skin thickening w/i RLE most pronounced w/i R ankle. 3cm blister along medial aspect ankle/hindfoot. NOT loculated fluid collection MRI w/o osteo or fluid collection. Findings c/w cellulitis, possible myositis. CK wnl on check Ortho consulted, Dr Blevins On exam 02/20 w/ streaking beyond markings and abx Unasyn/Vanco changed to Zosyn/Vanco. concerns for nec fasc (bullous disease, appearing like group A strep infection on initial examination) Discussed with pharmacy to continue IV antibiotics through AM 02/23 given extent of infection/slowed response with improvement and switched to Bactrim/Keflex PM 02/23 and continued monitoring overnight to ensure continued improvement WBC remains wnl but slightly elevated compared to prior at 10. He is remaining AFEBRILE (last true fever 38.1C on exam, low grade elevation to 67.7 on 02/21) Blood cultures remain NGTD after 5 days -- called to micro and still no growth Bedside cx from debridement with Dr Blevins 02/21 without growth, no WBC or orgnisms seen on GS Lovenox SQ for DVT prophylaxis (dopplers negative) Pain control transitioned to PO oxycodone -- sent short rx at discharge however patient is wanting to avoid LFT elevated on AM labs, no RUQ pain on examination or n/v. ?if from prior Zosyn given not trended on admission -- CK repeated and wnl HRs improving with treatment of infection, in the 60-80s this morning up to 100s but no further 150/160s. Sinus tachy on monitor/ekg -- cards consulted as below and outpt f/u to be arranged Discussed with patient and given no abdominal pain, can repeat labs this upcoming week to ensure stable and will also repeat CBC to ensure trending down Offered to keep overnight again to monitor however patient really wanting to go home. Discussed signs to monitor for/return to emergency room if these occur. Understands, confirmed with at bedside. Task sent to CM Navigator to ensure wound care follow up and PCP are arranged for this upcoming week. RN to give patient supplies for dressing changes and patient to change once daily. (2) Cellulitis of right lower extremity: Abx as above, US dopplers NEGATIVE for DVT Was given Tdap in ER given injury/no recent Tdap MRI w/o evidence for osteo or abscess Ortho consulted as above, bedside debridement 02/[address] Blevins. Cx remaining NGTD. Abx as outlined above Educated to continue elevating extremity at discharge to promote hearing CM to arrange wound center follow up Rec obtaining arterital studies/MAXX once cellulitis improving (not able to last week 2nd to pain but does have sensation, warm extremities, cap refill wnl) -decreased pulses 2nd to swelling however US doppler NEGATIVE for DVT on admission and remained on DVT prophylaxis Task sent to CM navigator to allow arrange for venous studies in follow up given ongoing edema preceding cellulitis. May Thurner syndrome? Consider abdominal imaging however his swelling is on the right, less likely but there is variant on the right. Consideration for CT scan of the abdomen if venous imaging is negative in follow up with PCP (3) Tachycardia: EKG w/ sinus tachycardia on admit, no arrhythmia on telemetry at present -- pt reported a history of chest tightness and lower extremity swelling, with hx blood/cardiac disorder in parent but unsure. Dopplers negative for DVT. Not hypotensive/hypoxic to warrant CT Chest for PE at present CXR w/o acute process TSH wnl Patient states long standing hx elevated HR at baseline outpatient -- had been cutting back caffeine intake/etc as outpatient Echo w/ slightly reduced EF -- cardiology consulted * Patient w/ high level physical activity at baseline, LV dysfunction would not seem to warrant chronic tachycardia but possibly chronic tachycardia causing mild LV systolic dysfunction * If absence of symptoms at present not to specifically treat. HRs improving w/ treatment of cellulitis/pain control Cardiology planning to schedule him for stress echocardiogram in 1 month -- if has normal LV systolic reserve would remain unclear that he actually has a cardiomyopathy. However if does have limited systolic reserve, will need further eval as to etiology and preventative treatment with SARAH/ARB and low dose BB may be warranted (4) HTN (hypertension): elevated 2nd to pain, monitor -- improved with control Per cards, no need for acute treatment at this time BP 119/79 on recent check (5) CHF (congestive heart failure): no prior diagnosis, not on any medications LV dysfunction ? to long standing cardiomyopathy vs other Cards on consulted as above and arranging outpatient eval for further evaluation/stress echo in 1 month No hypoxia at present/pulmonary congestion/etc Of note, did get 1x dose lasix 20mg IV earlier in the stay to help with edema -- nothing further (6) Hyponatremia: 128 on admit, 130 after IVF --> 129 after dose IV lasix but kidney function improved TSH wnl Urine osm 287, urine na 98, serum osm 287. ?SIADH from pain, elevated Na from diuretic use -- nothing further Also discontinued tramadol as ordered for pain/switched to PO oxycodone Cortisol not significantly low -- 11.75 Na 136 on AM labs but then again lower at 133 Repeat CK w/ elevated LFTs wnl Kidney function stable Repeat labs this upcoming week Plan Patient discharged on PO Bactrim/Keflex, pain control Outpt f/u PCP, wound care and cardiology. Dr Blevins as needed Repeating echo in 1 month w/ cards for eval cardiomyopathy/tachycardia Total Time Total Time Spent Total Time Spent (In Minutes): 50 Discharge Plan Discharge Items Patient Disposition: Home - Self-Care Reason For Visit: CELLULITIS W/ LYMPHANGITIS Discharge Diagnosis: Cellulitis Condition on Discharge: Fair Activity: As commented below Activity Comment: limit weight bearing to your right leg, use walker with ambulation Non-emergency contact: Primary Care Provider and Surgeon Call non-emergency contact if: you have any medication questions, your symptoms worsen, your pain is not controlled and you have a fever Follow-up/Referrals: Rahul River MD [Physician] - Cherri Torres MD [Primary Care Provider] - Chema Blevins DO [Surgeon] - Diet: Heart Healthy Ambulatory Orders: Complete Blood Count with Diff (Routine) Timeframe: 20230226 Location: Determined by Patient Ordered By: Yasmine Myers Comprehensive Metabolic Panel (Routine) Timeframe: 20230226 Location: Determined by Patient Ordered By: Yasmine Myers Add Attending Provider Instructions: You have been hospitalized for cellulitis and were treated with IV antibiotics. Cultures have remained without growth at this time and you have not had any other fevers. You were transitioned to Bactrim and Keflex and will need to complete a two week course of antibiotics given the extent of the infection. You have been provided repeat lab slips to be drawn next week to ensure white blood count normalizes and your liver enzymes return to normal. Given you were not having any abdominal pain, these elevations are suspected from the IV antibiotic given while in the hospital but I feel it is important to follow up on these to make sure they are returning to normal. You should use a walker/crutches to help with ambulation to prevent excessive weight bearing to your affected extremity. Please keep your leg elevated as much as possible to help with swelling/promote healing. You should continue double layer xeroform dressings with 4x4s and secure with kerlix. Nursing should be providing you with supplies to continue changing the dressing every day. Case management will be working on arranging you follow up with the wound center as well as primary care with Dr Torres for monitoring after discharge from the hospital to monitor your progress. You can follow up with Dr Blevins as needed if any worsening as well. His office number is [phone] if needed. You were also evaluated by cardiology given larger heart/elevated heart rates and they will be arranging for outpatient follow up testing for evaluation. You should return to the ER with any worsening pain, fevers, redness/swelling or streaking up your leg. Please follow up with primary care in the next week to monitor your progress. Pending Studies at Discharge: Yes Studies:: Blood cultures -- no growth to date Ankle culture - no growth to date Peripheral smear pending Stand-Alone Forms: My [facility], Smoking Cessation Medications and DC Order Prescriptions: New sulfamethoxazole-trimethoprim [Bactrim DS] 800-160 mg Tablet 1 tab PO BID 10 Days Qty: 20 0RF cephalexin 500 mg Capsule 500 mg PO Q6 10 Days Qty: 40 0RF oxycodone 5 mg capsule 5 mg PO Q6H PRN (Reason: pain) Qty: 14 0RF Rx Instructions: 5-10mg q6 hours as needed for pain Krames/Other Patient Handouts: Tdap Vaccine Admission Data Admit Date/Time: 02/19/23 15:43 Attending Provider: Sheryl Lee Admit Provider: Abdullahi Kelley Primary Care Provider: Cherri Torres Other Providers: Chema Blevins ; Rahul River Supervising Physician Co-Signing Physician Notes PA Supervision Note: I personally saw and examined the patient. I verified all ibrahim points and agree with PA Myers with the following exceptions and/or additions: S-Pt felein gbetter, less pain and redness, less edema in RLE. Denies any other problems Has had R>L LLE edema off and on for 2-3 years without explanation but does report he is on his feet for work sometimes 15-16 hours a day. O- Vitals reviewed Gen: [AAOx3, NAD] HEENT: [anicteric sclerae, EOMI] CV: [RRR no mgr nl S1S2] Pulm: [CTAB no wcr] Abd: [+BS soft NT ND no masses or hernias] Ext: [Right leg with 2+ pitting edema to the knee,erythema only on mid to distal right leg, significantly receded from previous line of demarcation, open superfical wounds from previous blister debridement covered, +palpable right inguinal CINTIA mildly tender Neuro: [full strength throughout] A/P-37 yo male here with right lower extremity cellulitis with bullae, now improving on IV and then po abx, broad coverage, no cx data for review With reduced EF, sinus tachycardia--> f/u with Cardio for stress test outpt For chronic LE edema as above--> plan for Vascular Med/Cardio consult for venous studies and consider CT venogram abd/pel Coding Level of Care Code 50513 INP/OBS DISCH >30 MIN Diagnoses Sepsis A41.9 Cellulitis of right lower extremity L03.115 Tachycardia R00.0 HTN (hypertension) I10 CHF (congestive heart failure) I50.9 Hyponatremia E87.1
== END 2023-02-24 16:30 | disposition home or self-care (01) | DRG 854 ==
LOC: ED 11:04 → SUATTDRO 15:43 → 2W 15:43